=== PATIENT | female | born 1940 | race Caucasian/White ===

== ENCOUNTER 2016-10-14 09:47 | Outpatient (CLI) ==
[2016-10-14 10:09] LABS: BASOPHILS % (AUTO) 0.4 % (0.0-3.0); EOSINOPHILS # (AUTO) 0.6 K/ul (0.0-0.7); EOSINOPHILS % (AUTO) 5.5 % (0.0-7.0); HEMATOCRIT 31.9 % (37.0-47.0); HEMOGLOBIN 9.7 g/dl (12.0-16.0); IMMATURE GRANULOCYTE % (AUTO) 0.3 % (0.0-5.0); LYMPHOCYTES # (AUTO) 1.2 K/uL (0.60-3.4); MEAN CORPUSCULAR HEMOGLOBIN 28.5 pg (27.0-31.0); MEAN CORPUSCULAR HGB CONC 30.4 (31.8-35.4); MEAN CORPUSCULAR VOLUME 93.8 fl (81.0-99.0); MONOCYTES # (AUTO) 0.8 K/uL (0.4-2.0); NEUTROPHILS # (AUTO) 7.8 K/ul (2.0-6.9); NEUTROPHILS % (AUTO) 74.8; PLATELET COUNT 300 10^3/uL (140-440); WHITE BLOOD COUNT 10.44 K/ul (4.6-10.2)
[2016-10-14 10:30] LABS: ALBUMIN 3.2 g/dL (3.4-5.0); ALBUMIN/GLOBULIN RATIO 0.73; ANION GAP 14.6; BILIRUBIN,TOTAL 0.36 mg/dL (0.00-1.20); BUN/CREATININE RATIO 18.55; CALCIUM 9.6 mg/dL (8.2-10.2); CREATININE 1.94 mg/dL (0.60-1.30); POTASSIUM 5.6 mmol/L (3.5-5.10); TOTAL PROTEIN 7.6 g/dL (5.8-8.1)
[2016-10-14 11:17] VITALS: BMI 44.1
--- NOTE | 2016-10-14 11:17 | US ---
EXAM: Bilateral lower extremity venous Doppler History: Bilateral lower extremity pain and edema. Technique: Multiple sonographic images through the bilateral lower extremities were obtained. [place] r duplex Doppler was used to interrogate vascular flow. Findings: The bilateral common femoral, greater saphenous, profunda, superficial femoral, popliteal and left peroneal veins demonstrate spontaneous flow with normal compression and normal augmentatio n. The right peroneal vein was not visualized. The bilateral posterior tibial and anterior tibial veins were not seen. Bilateral lower extremity subcutaneous edema. Impression: 1. No sonographic evidence for deep venous thrombosis within the visualized veins. 2. Bilateral lower extremity subcutaneous edema.
== END 2016-10-14 09:48 | disposition home or self-care (01) ==
LOC: RAD 09:47
PROVIDERS: ATTEND Nurse Practitioner Family
DX: R06.02 Shortness of breath (principal); R05 Cough; M79.604 Pain in right leg; M79.605 Pain in left leg; L03.90 Cellulitis, unspecified
CPT/HCPCS: 36415; 80053; 83880; 85025; 87070

== ENCOUNTER 2016-10-14 11:05 | Emergency (ER) ==
[2016-10-14 11:17] VITALS: BP 145/64; TEMP 98.3; BMI 44.1
[2016-10-14 11:40] LABS: ABG BASE EXCESS -5 (-2.0-2.0); ABG HCO3 20.2 (22.0-26.0); ABG PCO2 33.3 mmHg (35-45); ABG PH 7.391 (7.35-7.45); ABG TCO2 21 (22.0-28.0); ALLEN TEST RB
--- NOTE | 2016-10-14 12:25 | CT ---
EXAM: CT of the chest without contrast History: Short of breath Comparison: Chest CT 08/09/2016 Technique: Multiplanar CT images through the thorax were obtained without the administration of IV contrast Findings: Upper limits of normal heart size. Coronary calcifications. No pericardial effusion. G reat vessels are grossly unremarkable on this noncontrast study. No pathologically enlarged axillar y lymph nodes. Small scattered mediastinal lymph nodes, similar to the prior study. Evaluation for hilar lymph nodes is limited due to the lack of contrast administration but no bulky hilar adenopat hy is seen. Mild bilateral ground-glass changes. No pleural fluid and no pneumothorax. No suspicious lung mass es or lung nodules. In the visualized upper abdomen, evaluation is limited due to motion artifact. Nonspecific subcutan eous edema within the visualized back. No acute osseous abnormalities. 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 Impression: Bilateral ground-glass changes could represent early edema or pneumonia. Borderline en larged heart and coronary artery disease.
--- NOTE | 2016-10-14 12:59 | ED.PDOC ---
General ED Provider: Dr. FAWAD CHANDRA Chief Complaint: Shortness of Air Stated Complaint: shortness of breath Time Seen by Physician: 11:15 Mode of Arrival: Wheelchair Information Source: Patient Exam Limitations: No limitations Primary Care Provider: JESSE WHEELER Nursing and Triage Documentation Reviewed and Agree: Yes Respiratory Complaint Exam - Respiratory Complaint/Exam Onset/Duration: 3 days of shortness breath at clinic abnormal labs noted sent to emergency Symptoms Are: Still present, Resolved Timing: Constant, Intermittent Initial Severity: Mild Current Severity: None Location: Chest Character: Reports: Non-productive cough Aggravating: Reports: None Alleviating: Reports: Spontaneous resolution Associated Signs and Symptoms: Denies: Rapid breathing, Dyspnea, Fever, Chills, Chest pain, Pleuritic chest pain, Wheezing, Hemoptysis, Dizziness, Calf pain, Calf swelling, Edema, URI, Nasal congestion, Hoarseness, Sinus discomfort, Vomiting, Sore throat, Weight loss, Decreased oral intake, Increased thirst, Increased appetite, Increased urination Related History: Reports: Similar episode Related Surgical History: Reports: None Pulmonary Embolism Risk Factors: None Cardiac Risk Factors: Reports: Elevated lipids Pseudomonas Risk Factors: Reports: None Tuberculosis Risk Factors: Reports: None Status Asthmaticus Risk Factors: Reports: None Home Oxygen Use: No Recent Stress Test: No Recent Echo/LV Function: No Current Antibiotic Use: No Current Asthma Medication Use: No Respiratory Distress: None Inadequate Respiratory Effort: No Dysphagia Present: No Stridor Present: No JVD Present: No Accessory Muscle Use: No Retractions: Not Present Diminished Breath Sounds: No Sinus Tenderness: None Grunting Respirations: No Kussmaul Respirations: No Differential Diagnoses: CHF, Pulmonary Edema, COPD Exacerbation, Pneumonia, Bronchitis, URI, Lower Resp. Infection Review of Systems - Review Of Systems Constitutional: Reports: Malaise, Weakness Eyes: Reports: No symptoms Ears, Nose, Mouth, Throat: Reports: No symptoms Respiratory: Reports: Cough Cardiac: Reports: No symptoms GI: Reports: No symptoms : Reports: No symptoms Musculoskeletal: Reports: No symptoms Skin: Reports: Other (rash biltaer lower leg per pt is a chronic issue photos attached ) Neurological: Reports: No symptoms Endocrine: Reports: No symptoms Hematologic/Lymphatic: Reports: No symptoms All Other Systems: Reviewed and Negative Past Medical History - Past Medical History Previously Healthy: No Endocrine: Reports: Dyslipidemia Cardiovascular: Reports: None Respiratory: Reports: None Hematological: Reports: None Gastrointestinal: Reports: GERD Genitourinary: Reports: None Neuro/Psych: Reports: None Musculoskeletal: Reports: Unknown Cancer: Reports: Unknown Last Menstrual Period: n/a - Surgical History General Surgical History: Reports: Unknown - Family History Family History: Reports: Unknown - Social History Smoking Status: Former smoker Hx Substance Use: No Alcohol Screening: None Physical Exam - Physical Exam Appearance: Obese Ill-appearing: Mild Pain Distress: Mild Eyes: TAMELA, EOMI, Conjunctiva clear ENT: Ears normal, Nose normal, Oropharynx normal Respiratory: Airway patent, Breath sounds clear, Breath sounds equal, Respirations nonlabored Cardiovascular: RRR, Pulses normal, No rub, No murmur GI/: Soft, Nontender, No masses, Bowel sounds normal, No Organomegaly Musculoskeletal: Normal strength, ROM intact, No edema, No calf tenderness Skin: Warm, Dry (chronic venous stasis bilateral lower leg ) Neurological: Sensation intact, Motor intact, Reflexes intact, Cranial nerves intact, Alert, Oriented Psychiatric: Affect appropriate, Mood appropriate Interpretation - Assistant Toddler Teacher Rate: Normal Rhythm: Sinus Ectopy: None - EKG Interpretation Rate: Normal Rhythm: Sinus Ectopy: None [place]: Left Physician Notification - Case Discussed Physician Notified: shree Time of Notification: 13:30 Critical Care Note - Critical Care Note Total Time (mins): 0 Course - Course Orders, Labs, Meds: Lab Review 10/14/16 10/14/16 10/14/16 11:17 11:40 11:47 D-Dimer 4.25 O2 Saturation 99.0 ABG pH 7.391 ABG pCO2 33.3 L ABG pO2 151.0 H ABG HCO3 20.2 L ABG Total CO2 21 L ABG Base Excess -5 L Yaya Test Rb FiO2 % 21.0 Lactic Acid 7.7 TSH 1.195 Free T4 1.06 Orders Category Date Time Status ABG DRAW REQUEST Stat CARDIO 10/14/16 11:17 Completed EKG-(ED ONLY) Stat CARDIO 10/14/16 11:18 Completed ABG Stat LAB 10/14/16 11:17 Completed BLOOD CULTURE Stat LAB 10/14/16 11:40 Received D-DIMER Stat LAB 10/14/16 11:47 Completed FREE T4 (FREE THYROXINE) Stat LAB 10/14/16 11:40 Completed LACTIC ACID Stat LAB 10/14/16 11:40 Completed THYROID STIMULATING HORMONE Stat LAB 10/14/16 11:[address] CHEST W/O CONTRAST Stat RADS 10/14/16 11:16 Completed Vital Signs: Temp Pulse Resp BP Pulse Ox 10/14/16 11:06 98.3 F 75 20 145/64 H 96 Departure - Departure Time of Disposition: 13:29 Disposition: TSF SHORT-TRM HOSP Discharge Problem: Acute renal failure (ARF) Qualifiers: Acute renal failure type: unspecified Qualifier Code: (N17.9) Acute kidney failure, unspecified Instructions: Chronic Kidney Disease (ED) Condition: Good Pt referred to PMD for follow-up: Yes Additional Instructions: Please call your Family Physician as soon as possible to schedule a follow-up appointment. Allergies/Adverse Reactions: Allergies pcn Allergy (Severe, Uncoded 10/14/16 11:19) rash , sores in mouth pt notified to get medical alert necklace Home Medications: Ambulatory Orders Meloxicam [Mobic] 15 mg PO DAILY 03/27/14 Oxybutynin Chloride 5 mg PO DAILY 03/27/14 Gabapentin 400 mg PO BID 08/18/16 Tramadol HCl [Ultram] 50 mg PO BID 08/18/16 Hydrocodone/Acetaminophen [[place] 5-325 Tablet] 1 each PO BID PRN #60 tab-cap Disposition Discussed With: Patient, Family
== END 2016-10-14 14:10 | disposition short-term general hospital (02) ==
LOC: ED 11:05
DX: N17.9 Acute kidney failure, unspecified (principal); R06.02 Shortness of breath; E78.5 Hyperlipidemia, unspecified; R53.1 Weakness; Z79.899 Other long term (current) drug therapy; R05 Cough; M79.604 Pain in right leg; M79.605 Pain in left leg; L03.90 Cellulitis, unspecified
CPT/HCPCS: 36415; 80053; 82803; 83605; 83880; 84439; 84443; 85025; 85379; 87040; 87070; 93005; 93010; 99285

== ENCOUNTER 2016-10-14 13:02 | Outpatient (CLI) ==
[2016-10-14 11:17] VITALS: BMI 44.1
== END 2016-10-14 13:03 | disposition home or self-care (01) ==
LOC: LAB 13:02
PROVIDERS: ATTEND Nurse Practitioner Family
DX: M79.604 Pain in right leg (principal); R06.02 Shortness of breath
CPT/HCPCS: 87070

== ENCOUNTER 2016-10-14 14:17 | Outpatient (CLI) ==
[2016-10-14 11:17] VITALS: BMI 44.1
== END 2016-10-14 14:18 | disposition home or self-care (01) ==
LOC: AMBL 14:17
PROVIDERS: ATTEND Internal Medicine
DX: N19 Unspecified kidney failure (principal)

== ENCOUNTER 2016-11-26 19:11 | Outpatient (CLI) | payer OTHER ==
[2016-11-26 19:56] LABS: BILIRUBIN,URINE Negative (NEGATIVE); KETONES,URINE Negative (NEGATIVE); LEUKOCYTE ESTERASE ,URINE Trace (NEGATIVE); NITRITE,URINE Negative (NEGATIVE); PH,URINE 7.5 (5-9); PROTEIN,URINE Negative (NEGATIVE); URINE, BLOOD Negative (NEGATIVE)
[2016-11-26 20:07] LABS: ADD URINE MICROSCOPIC YES; ALBUMIN 3.8 g/dL (3.4-5.0); BUN/CREATININE RATIO 17.85; CALCIUM 10.2 mg/dL (8.2-10.2); CREATININE 0.84 mg/dL (0.60-1.30); PHOSPHORUS 2.6 mg/dL (2.8-4.1); URIC ACID 5.8 mg/dL (2.4-6.0)
[2016-11-26 20:10] LABS: HEMATOCRIT 39.5 % (37.0-47.0); HEMOGLOBIN 12.3 g/dl (12.0-16.0); MEAN CORPUSCULAR HEMOGLOBIN 28.5 pg (27.0-31.0); MEAN CORPUSCULAR HGB CONC 31.1 (31.8-35.4); MEAN CORPUSCULAR VOLUME 91.6 fl (81.0-99.0); RED BLOOD COUNT 4.31 10^6/ul (4.20-5.40); WHITE BLOOD COUNT 7.54 K/ul (4.6-10.2)
[2016-11-28 06:44] LABS: URINE CREATINE 49.8 mg/dL (Not Estab.)
[2016-11-29 15:16] LABS: A/G RATIO 1.1 (0.7-1.7); ALPHA-1 GLOBULIN 0.3 g/dL (0.0-0.4); ALPHA-2 GLOBULIN 0.8 g/dL (0.4-1.0); BETA GLOBULIN 1.3 g/dL (0.7-1.3); TOTAL GLOBULINS 3.4 g/dL (2.2-3.9)
[2016-12-01 07:21] LABS: URINE PROTEIN/CREATININE RATIO 249 mg/g creat (0-200)
== END 2016-11-26 19:12 | disposition home or self-care (01) ==
LOC: NONPT 19:11
PROVIDERS: ATTEND Specialist
DX: E87.5 Hyperkalemia (principal); R79.89 Other specified abnormal findings of blood chemistry
CPT/HCPCS: 80069; 81001; 82570; 83970; 84156; 84165; 84550; 85027

== ENCOUNTER 2017-02-28 12:02 | Outpatient (CLI) ==
[2017-02-28 13:10] LABS: BASOPHILS # (AUTO) 0.1 K/uL (0-0.2); BASOPHILS % (AUTO) 0.6 % (0.0-3.0); EOSINOPHILS # (AUTO) 0.4 K/ul (0.0-0.7); EOSINOPHILS % (AUTO) 4.5 % (0.0-7.0); HEMATOCRIT 37.7 % (37.0-47.0); HEMOGLOBIN 12.2 g/dl (12.0-16.0); IMMATURE GRANULOCYTE % (AUTO) 0.4 % (0.0-5.0); LYMPHOCYTES # (AUTO) 1.9 K/uL (0.60-3.4); LYMPHOCYTES % (AUTO) 24.1 (10.0-50.0); MEAN CORPUSCULAR HEMOGLOBIN 28.2 pg (27.0-31.0); MEAN CORPUSCULAR HGB CONC 32.4 (31.8-35.4); MEAN CORPUSCULAR VOLUME 87.1 fl (81.0-99.0); MONOCYTES # (AUTO) 0.7 K/uL (0.4-2.0); MONOCYTES % (AUTO) 8.9 (0-10); NEUTROPHILS # (AUTO) 4.9 K/ul (2.0-6.9); NEUTROPHILS % (AUTO) 61.5; PLATELET COUNT 306 10^3/uL (140-440); RED BLOOD COUNT 4.33 10^6/ul (4.20-5.40); WHITE BLOOD COUNT 8.01 K/ul (4.6-10.2)
[2017-02-28 13:54] LABS: ALBUMIN 3.6 g/dL (3.4-5.0); ALBUMIN/GLOBULIN RATIO 0.95; ANION GAP 14.3; BILIRUBIN,TOTAL 0.37 mg/dL (0.00-1.20); BUN/CREATININE RATIO 24.41; CALCIUM 9.5 mg/dL (8.2-10.2); CREATININE 0.86 mg/dL (0.60-1.30); POTASSIUM 4.3 mmol/L (3.5-5.10); TOTAL PROTEIN 7.4 g/dL (5.8-8.1)
== END 2017-02-28 12:03 | disposition home or self-care (01) ==
LOC: LAB 12:02
PROVIDERS: ATTEND Nurse Practitioner Family
DX: I35.0 Nonrheumatic aortic (valve) stenosis (principal); E78.5 Hyperlipidemia, unspecified; R60.9 Edema, unspecified
CPT/HCPCS: 36415; 80053; 80061; 84443; 85025

== ENCOUNTER 2017-05-06 15:19 | Outpatient (CLI) ==
[2017-05-06 16:27] LABS: BASOPHILS # (AUTO) 0.1 K/uL (0-0.2); BASOPHILS % (AUTO) 0.7 % (0.0-3.0); EOSINOPHILS # (AUTO) 0.1 K/ul (0.0-0.7); EOSINOPHILS % (AUTO) 1.3 % (0.0-7.0); HEMOGLOBIN 12.3 g/dl (12.0-16.0); IMMATURE GRANULOCYTE % (AUTO) 0.3 % (0.0-5.0); LYMPHOCYTES # (AUTO) 1.9 K/uL (0.60-3.4); LYMPHOCYTES % (AUTO) 21.8 (10.0-50.0); MEAN CORPUSCULAR HEMOGLOBIN 29.8 pg (27.0-31.0); MEAN CORPUSCULAR HGB CONC 33.2 (31.8-35.4); MEAN CORPUSCULAR VOLUME 89.6 fl (81.0-99.0); MONOCYTES # (AUTO) 0.7 K/uL (0.4-2.0); MONOCYTES % (AUTO) 7.5 (0-10); NEUTROPHILS % (AUTO) 68.4; PLATELET COUNT 308 10^3/uL (140-440); RED BLOOD COUNT 4.13 10^6/ul (4.20-5.40); WHITE BLOOD COUNT 8.78 K/ul (4.6-10.2)
[2017-05-06 16:46] LABS: ALBUMIN 3.8 g/dL (3.4-5.0); BILIRUBIN,TOTAL 0.25 mg/dL (0.00-1.20); BUN/CREATININE RATIO 31.03; CALCIUM 9.9 mg/dL (8.2-10.2); CREATININE 0.87 mg/dL (0.60-1.30); PHOSPHORUS 3.7 mg/dL (2.8-4.1); TOTAL PROTEIN 7.6 g/dL (5.8-8.1); URIC ACID 5.6 mg/dL (2.4-6.0)
== END 2017-05-06 15:20 | disposition home or self-care (01) ==
LOC: LAB 15:19
PROVIDERS: ATTEND Nurse Practitioner Family
DX: N18.2 Chronic kidney disease, stage 2 (mild) (principal); E78.5 Hyperlipidemia, unspecified; R01.1 Cardiac murmur, unspecified
CPT/HCPCS: 36415; 80053; 82570; 84100; 84156; 84550; 85025

== ENCOUNTER 2017-11-30 10:12 | Outpatient (CLI) | payer OTHER | END 2017-11-30 10:13 | disposition home or self-care (01) | LOC: LAB 10:12 | PROVIDERS: ATTEND Nurse Practitioner Family | DX: R01.1 Cardiac murmur, unspecified (principal); E78.5 Hyperlipidemia, unspecified; E66.01 Morbid (severe) obesity due to excess calories | CPT/HCPCS: 36415; 80053; 80061; 85025 ==

== ENCOUNTER 2018-03-31 10:42 | Outpatient (CLI) | payer OTHER | END 2018-03-31 10:43 | disposition home or self-care (01) | LOC: FCC-LAB 10:42 | PROVIDERS: ATTEND Nurse Practitioner Family | DX: R01.1 Cardiac murmur, unspecified (principal); E78.5 Hyperlipidemia, unspecified; R60.9 Edema, unspecified; R79.9 Abnormal finding of blood chemistry, unspecified; Z79.899 Other long term (current) drug therapy; Z86.19 Personal history of other infectious and parasitic diseases | CPT/HCPCS: 36415; 80053; 80061; 85025 ==

== ENCOUNTER 2018-05-12 09:40 | Outpatient (CLI) | END 2018-05-12 09:41 | disposition home or self-care (01) | LOC: LAB 09:40 | PROVIDERS: ATTEND Specialist | DX: N18.2 Chronic kidney disease, stage 2 (mild) (principal) | CPT/HCPCS: 36415; 80069; 81001; 82570; 84156; 84550; 85027 ==

== ENCOUNTER 2019-03-26 07:56 | Outpatient (CLI) | END 2019-03-26 07:57 | disposition home or self-care (01) | LOC: RHC-LAB 07:56 | PROVIDERS: ATTEND Nurse Practitioner Family | DX: E78.5 Hyperlipidemia, unspecified (principal); E66.01 Morbid (severe) obesity due to excess calories; R01.1 Cardiac murmur, unspecified | CPT/HCPCS: 36415; 80053; 80061; 84443; 85025 ==

== ENCOUNTER 2023-03-28 14:41 | Observation (INO) ==
[2023-03-28] MEDS ORDERED: SODIUM CHLORIDE 1,000 ML IV STA (15:15)
--- NOTE | 2023-03-28 15:22 | ED.PDOC ---
General ED Provider: Dr. CRISTEL ACEVEDO MD Chief Complaint: Weakness Stated Complaint: generalized weakness Time Seen by Provider: 03/28/23 15:00 Mode of Arrival: Ambulance Information Source: Patient and EMT Exam Limitations: No limitations Primary Care Provider: KAROLINA ANTONIO MD Nursing and Triage Documentation Reviewed and Agree: Yes Does patient meet sepsis criteria?: No System Inflammatory Response Syndrome: Not Applicable Sepsis Protocol: For patient's 13 years and over: Temp is 96.8 and below OR 101 and greater Pulse >90 BPM Resp >20/minute Acutely Altered Mental Status Are patient's symptoms suggestive of a new infection, such as: -Pneumonia -Skin, Soft Tissue -Endocarditis -UTI -Bone, Joint Infection -Implantable Device -Acute Abdominal Infection -Wound Infection -Meningitis -Blood Stream Catheter Infection -Unknown Neurological Complaint Exam Weakness Complaint/Exam Onset: Gradual Duration: ~3 weeks Symptoms Are: Worse Timing: Constant Initial Severity: Mild Current Severity: Moderate Character: Reports Lightheaded, Weak and Dizzy Aggravating: Reports Exertion Alleviating: Reports None Associated Signs and Symptoms: Reports Short of air, Unsteady gait, Change in medication and Loss of balance Cardiac Risk Factors: Reports Hypertension and Elevated lipids CVA Risk Factors: Reports Hypertension and Valvular Heart Disease Related Surgical History: Reports Valve Replacement JVD Present: No Carotid Bruit Present: No Glascow Coma Scale (see protocol): 15 Nystagmus Present: No Meningeal Signs Positive: No Focal Weakness: Present None Focal Sensory Loss: Present None Gait: Unable (unable to assess) [id number]: Normal Findings Differential Diagnoses: CAD, [place], Dysrhythmia, BPPV, Hypovolemia, GI Bleed, Labyrinthitis, Meniere's, Medication reaction, Metabolic abnormalities, Vasovagal reaction and Other Review of Systems Review Of Systems Constitutional: Reports Malaise and Weakness Respiratory: Reports Shortness of Breath (on exertion) Cardiac: Reports Lightheadedness Neurological: Reports Weakness All Other Systems: Reviewed and Negative [facility] Medical History 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 (ICD-10) Arthritis M19.90 - Unspecified osteoarthritis, unspecified site (ICD-10) Cat bite of hand S61.459A - Open bite of unspecified hand, initial encounter (ICD-10) Cat bite of hand S61.459A - Open bite of unspecified hand, initial encounter (ICD-10) Hemangioma D18.00 - Hemangioma unspecified site (ICD-10) Overactive bladder N32.81 - Overactive bladder (ICD-10) Peripheral edema R60.9 - Edema, unspecified (ICD-10) Presence of surgical incision Z78.9 - Other specified health status (ICD-10) Puncture wound of hand, right S61.431A - Puncture wound without foreign body of right hand, initial encounter (ICD-10) Seborrheic dermatitis L21.9 - Seborrheic dermatitis, unspecified (ICD-10) Family History Mother Type 1 diabetes mellitus FATHER No problems noted. Social History Smoking and tobacco status: Never smoker Alcohol intake: never Substance use type: does not use Laureen/sabianism: TAOIST Special laueren needs: No Agree to transfusion: Yes Adopted: No Caregiver/support person: No Foster care: No Household members: none Housing: house Marital status: W / Lives independently: Yes Daycare: no daycare Number of children: 4 Number of grandchildren: 7 Highest education level completed: 12th grade, no diploma Financial difficulty paying for basics: not very hard service: No longterm: No Current occupational status: retired Previous occupational history: electronics manufacturing Pets and animals: Yes Leisure activites: games and volunteer work History of recent travel: Yes Do you think of yourself as: straight/heterosexual Current gender identity: female Seatbelt use: always Helmet use: No Drives intoxicated or rides with intoxicated shuttle van driver: No Current diet type/program: low salt Well-balanced diet: daily Caffeine: Yes Eating out: 1-3 times/week Reads food labels: sometimes During the past year weight has: decreased > 10 lbs Water heater temperature set < 120 degrees: Yes Working smoke detector in home: Yes Fire extinguisher in home: Yes Carbon monoxide detector in home: Yes Firearms in home: Yes Firearms unloaded and locked: Yes Physical activity functional status: independent ambulation Surgical History H/O aortic valve replacement Z95.2 - Presence of prosthetic heart valve (ICD-10) History of musculoskeletal system surgery Z98.890 - Other specified postprocedural states (ICD-10) History of orthopedic surgery Z98.890 - Other specified postprocedural states (ICD-10) History of surgery Z98.890 - Other specified postprocedural states (ICD-10) History of surgery on integumentary structure (~2013) Z98.890 - Other specified postprocedural states (ICD-10) Status post appendectomy Z90.49 - Acquired absence of other specified parts of digestive tract (ICD- 10) Female Reproductive History Menstrual Age of Menarche: 13 Hx Hysterectomy: No Hx Tubal Ligation: No Physical Exam Physical Exam Appearance: Reports Well-appearing and No pain distress Ill-appearing: None Pain Distress: None Eyes: Reports TAMELA, EOMI and Conjunctiva clear ENT: Reports Ears normal and Nose normal Neck: Nonsupple (normal age-appropriate external appearance) Respiratory: Reports Airway patent, Breath sounds clear, Breath sounds equal, Breath sounds diminished and Respirations nonlabored Cardiovascular: Reports RRR GI/: Reports Soft, Nontender and Bowel sounds normal Musculoskeletal: Reports Normal strength and ROM intact Skin: Reports Warm, Dry and Normal color Neurological: Reports Sensation intact, Motor intact, Cranial nerves intact, Alert and Oriented Psychiatric: Reports Other Critical Care Note Critical Care Note Total Critical Care Time (mins): 0 Course Course 03/29/23 04:40 03/29/23 04:40 Orders, Labs, Meds: Lab Review 03/28/23 03/28/23 15:34 18:00 WBC 8.88 RBC 2.90 L Hgb 8.5 L Hct 27.6 L MCV 95.2 MCH 29.3 MCHC 30.8 L RDW Coeff of [place]ka 18.6 H Plt Count 288 Immature Gran % (Auto) 0.3 Neut % (Auto) 74.6 Lymph % (Auto) 11.5 [place] % (Auto) 9.8 Eos % (Auto) 3.6 Baso % (Auto) 0.2 Neut # (Auto) 6.6 Lymph # (Auto) 1.0 [place] # (Auto) 0.9 Eos # (Auto) 0.3 Baso # (Auto) 0.0 Immature Gran # (Auto) 0.0 Sodium 139.9 Potassium 4.81 Chloride 107.2 H Carbon Dioxide 30.1 H Anion Gap 7.41 BUN 46.0 H Creatinine 1.42 H Estimated GFR (MDRD) 35.00 BUN/Creatinine Ratio 32.39 Glucose 113.8 H Calcium 8.93 Magnesium 2.24 Total Bilirubin 0.55 AST 30.3 ALT 17.0 Alkaline Phosphatase 109.9 Total Creatine Kinase 47.5 Troponin I < 0.012 Total Protein 6.62 Albumin 3.58 Globulin 3.04 Albumin/Globulin Ratio 1.17 TSH 3.620 Urine Color Yellow Urine Clarity Clear Urine pH 7.0 Ur Specific [place] 1.015 Urine Protein Negative Urine Glucose (UA) Negative Urine Ketones Negative Urine Blood 1+ H Urine Nitrite Negative Urine Bilirubin Negative Urine Urobilinogen 0.2 Ur Leukocyte Esterase 2+ H Urine Microscopic RBC 10-20 Urine Microscopic WBC 10-20 Ur Squamous Epith Cells 2-5 Urine Bacteria 3+ Orders Category Date Time Status EKG-(ED ONLY) Stat CARDIO 03/28/23 15:19 Completed Saline Lock [ED IV/MEDIPORT/POWERPORT] .ONCE EMERGENCY 03/28/23 15:16 Active CBC W/ AUTO DIFF Stat LAB 03/28/23 15:34 Completed CK [CREATINE KINASE] Stat LAB 03/28/23 15:34 Completed CMP [COMPREHENSIVE METABOLIC PANEL] Stat LAB 03/28/23 15:34 Completed MAGNESIUM Stat LAB 03/28/23 15:34 Completed TROPONIN I Stat LAB 03/28/23 15:34 Completed TSH [THYROID STIMULATING HORMONE] Stat LAB 03/28/23 15:34 Completed UA [URINALYSIS C & S IF INDICATED] Stat LAB 03/28/23 18:00 Completed VITAMIN D2,D3 FRACTIONATED Stat LAB 03/28/23 15:34 Received 0.9 % Sodium Chloride [Saline Flush] Meds 03/28/23 15:15 Active 1 syr IVF PRN PRN Sodium Chloride 0.9% [Sodium Chloride] 1,000 ml Meds 03/28/23 15:15 Discontinued IV 100 mls/hr Sodium Chloride 0.9% [Sodium Chloride] 500 ml Meds 03/28/23 15:56 Discontinued IV 100 mls/hr CHEST, 1V AP ONLY Stat RADS 03/28/23 15:[address] HEAD W/O CONTRAST Stat RADS 03/28/23 15:22 Completed Medications Generic Name Dose Route Start Last Admin Trade Name Virgen PRN Reason Stop Dose Admin Acetaminophen 650 mg 03/28/23 18:08 03/29/23 08:28 Acetaminophen 325 Mg Tablet PO 650 mg Q4H PRN Administration Mild Pain Amlodipine Besylate 5 mg 03/29/23 09:00 03/29/23 08:31 Amlodipine Besylate 5 Mg Tablet PO Not Given DAILY LEONID Atorvastatin Calcium 40 mg 03/29/23 21:00 Atorvastatin Calcium 20 Mg Tablet PO BEDTIME LEONID Carvedilol 25 mg 03/29/23 08:30 03/29/23 08:30 Carvedilol 12.5 Mg Tablet PO Not Given BIDWM LEONID Ferrous Sulfate 324 mg 03/29/23 09:00 03/29/23 08:28 Ferrous Sulfate 324 Mg Tablet.Dr PO 324 mg BID LEONID Administration Sodium Chloride 1,000 mls @ 100 mls/hr 03/28/23 18:30 03/29/23 05:54 Sodium Chloride IV 100 mls/hr .Q10H LEONID Administration Meclizine HCl 25 mg 03/29/23 07:07 Meclizine Hcl 25 Mg Tablet PO DAILY PRN DIZZINESS Non-Formulary Medication 1 applic 03/29/23 07:07 Clobetasol TP DAILY PRN WOUND Sacubitril/Valsartan 1 each 03/29/23 09:00 03/29/23 08:31 Sacubitril/Valsartan 1 Each Tablet PO Not Given BID LEONID Silver Sulfadiazine 1 applic 03/29/23 07:07 Silver Sulfadiazine 50 Gm Cream TP BID PRN Rash Sodium Chloride 1 syr 03/28/23 15:15 0.9% Sodium Chloride 10 Ml Disp.Syrin IVF PRN PRN To flush IV Discontinued Medications Generic Name Dose Route Start Last Admin Trade Name Virgen PRN Reason Stop Dose Admin Hydrocodone Bitart/Acetaminophen 1 tab 03/29/23 00:35 03/29/23 00:51 Hydrocodone Bit/Acetaminophen 5/325 Mg Tablet PO 03/29/23 00:36 1 tab ONCE ONE Administration Sodium Chloride 1,000 mls @ 100 mls/hr 03/28/23 15:15 03/28/23 15:57 Sodium Chloride IV 03/29/23 01:14 Not Given .Q10H STA Sodium Chloride 500 mls @ 100 mls/hr 03/28/23 15:56 03/28/23 15:57 Sodium Chloride IV 03/28/23 20:55 100 mls/hr .Q5H STA Administration Vital Signs: Temp Pulse Resp BP Pulse Ox 03/28/23 14:42 98.2 F 111 H 16 105/62 97 Patient presents with ~3 week h/o progressively worsening generalized weakness. Labs posted, consistent with anemia (RBC 2.90, H/H 8.5/27.6) and ERIN/dehydration (BUN/Creatinine 46.0/1.42, ratio 32.39, GFR 35). CXR reported "No acute cardiopulmonary disease. Mild cardiomegaly and TAVR". CT Head reported "No acute intracranial process". Patient was given an IVNS bolus followed by infusion. Once labs posted, it was obvious she would need admission. I spoke with the Hospitalist PACKAGING ASSEMBLER, Dell Silver, who accepted the patient for admisison. Discharge Plan Discharge Patient Disposition: ADMITTED INPATIENT Discharge Problem: Generalized weakness, Anemia, Acute renal insufficiency, Acute dehydration Did you review [place] COMM[employer]CIAL CONSTRUCTION ESTIMATOR for ALL controlled substances?: Not Applicable ED Provider: CRISTEL ACEVEDO Condition: Stable Physician Progress Note: []
[2023-03-28 15:43] LABS: BASOPHILS % (AUTO) 0.2 % (0.0-3.0); EOSINOPHILS # (AUTO) 0.3 K/ul (0.0-0.7); EOSINOPHILS % (AUTO) 3.6 % (0.0-7.0); HEMATOCRIT 27.6 % (37.0-47.0); HEMOGLOBIN 8.5 g/dl (12.0-16.0); IMMATURE GRANULOCYTE % (AUTO) 0.3 % (0.0-5.0); LYMPHOCYTES % (AUTO) 11.5 (10.0-50.0); MEAN CORPUSCULAR HEMOGLOBIN 29.3 pg (27.0-31.0); MEAN CORPUSCULAR HGB CONC 30.8 (31.8-35.4); MEAN CORPUSCULAR VOLUME 95.2 fl (81.0-99.0); MONOCYTES # (AUTO) 0.9 K/uL (0.4-2.0); MONOCYTES % (AUTO) 9.8 (0-10); NEUTROPHILS # (AUTO) 6.6 K/ul (2.0-6.9); NEUTROPHILS % (AUTO) 74.6 % (42.2-75.2); PLATELET COUNT 288 10^3/uL (140-440); RDW COEFFICIENT OF VARIATION 18.6 % (11.6-14.8); WHITE BLOOD COUNT 8.88 K/ul (4.6-10.2)
[2023-03-28 15:52] LABS: ALBUMIN 3.58 g/dL (3.5-5.0); ALKALINE PHOSPHATASE 109.9 U/L (53-141); ASPARTATE AMINO TRANSFERASE 30.3 U/L (14-36); BILIRUBIN,TOTAL 0.55 mg/dL (0.2-1.3); CALCIUM 8.93 mg/dL (8.4-10.2); CARBON DIOXIDE 30.1 mmol/L (22-30.0); CHLORIDE 107.2 mmol/L (98-107); CREATINE KINASE 47.5 U/L (30-135); CREATININE 1.42 mg/dL (0.60-1.30); GLUCOSE 113.8 mg/dL (74-106); MAGNESIUM 2.24 mg/dL (1.6-2.3); POTASSIUM 4.81 mmol/L (3.5-5.1); SODIUM 139.9 mmol/L (134.5-145); TOTAL PROTEIN 6.62 g/dL (6.3-8.2)
[2023-03-28] MEDS ORDERED: SODIUM CHLORIDE 500 ML IV STA (15:56)
[2023-03-28 16:05] LABS: TROPONIN I < 0.012 ng/ml (0.0000-0.120)
--- NOTE | 2023-03-28 16:42 | DI ---
EXAM: CHEST ONE-VIEW HISTORY: Weakness COMPARISON: Chest radiograph series from 07/23/2022 FINDINGS: The heart is mildly enlarged. TAVR is unchanged. The pulmonary vasculature is normal. N o consolidating infiltrates are detected. No pneumothoraces or pleural effusions. IMPRESSION: 1. No acute cardiopulmonary disease. 2. Mild cardiomegaly and TAVR. .
--- NOTE | 2023-03-28 17:14 | CT ---
EXAM: CT OF THE HEAD WITHOUT CONTRAST History: Weakness. Comparison: Head CT 07/05/2019 Technique: Multiplanar CT images through the head were obtained without the administration of IV con trast FINDINGS: The visualized paranasal sinuses and mastoid air cells are clear in general. No acute jasmyn varial abnormalities. Intracranially the ventricular and cisternal spaces are normal in size, shape and configuration for a patient of this age. No dominant mass or midline shift. No hydrocephalous. No acute intracranial hemorrhage or abnormal extraaxial fluid collections. Impression: No acute intracranial process All CT scans are performed using dose optimization techniques as appropriate to the performed exam an d include at least one of the following: Automated exposure control, adjustment of the mA and/or kV according t o size, and the use of iterative reconstruction technique.
[2023-03-28] MEDS: SODIUM CHLORIDE 1,000 ML IV SCH (20:35)
[2023-03-28 20:51] VITALS: BMI 36.3
[2023-03-28] MEDS: TYLENOL PO PRN (21:39)
[2023-03-28 22:41] LABS: BILIRUBIN,URINE Negative (NEGATIVE); CLARITY,URINE Clear (CLEAR); COLOR,URINE Yellow (YELLOW); GLUCOSE, URINE (UA) Negative (NEGATIVE); KETONES,URINE Negative (NEGATIVE); LEUKOCYTE ESTERASE ,URINE 2+ (NEGATIVE); NITRITE,URINE Negative (NEGATIVE); PROTEIN,URINE Negative (NEGATIVE); URINE, BLOOD 1+ (NEGATIVE); UROBILINOGEN,URINE 0.2 (0.2)
[2023-03-28 22:49] LABS: BACTERIA,URINE 3+ (NOT PRESENT)
[2023-03-29] MEDS ORDERED: NORCO 5-325 PO ONE (00:35)
[2023-03-29] MEDS: TYLENOL PO PRN ×2 (03:01→08:28)
[2023-03-29 05:07] LABS: BASOPHILS % (AUTO) 0.3 % (0.0-3.0); EOSINOPHILS # (AUTO) 0.4 K/ul (0.0-0.7); EOSINOPHILS % (AUTO) 5.4 % (0.0-7.0); HEMATOCRIT 25.5 % (37.0-47.0); HEMOGLOBIN 7.8 g/dl (12.0-16.0); IMMATURE GRANULOCYTE % (AUTO) 0.3 % (0.0-5.0); LYMPHOCYTES # (AUTO) 1.2 K/uL (0.60-3.4); LYMPHOCYTES % (AUTO) 16.7 (10.0-50.0); MEAN CORPUSCULAR HEMOGLOBIN 29.7 pg (27.0-31.0); MEAN CORPUSCULAR HGB CONC 30.6 (31.8-35.4); MONOCYTES # (AUTO) 0.8 K/uL (0.4-2.0); NEUTROPHILS # (AUTO) 4.8 K/ul (2.0-6.9); NEUTROPHILS % (AUTO) 66.3 % (42.2-75.2); PLATELET COUNT 274 10^3/uL (140-440); RDW COEFFICIENT OF VARIATION 18.6 % (11.6-14.8); RED BLOOD COUNT 2.63 10^6/ul (4.20-5.40); WHITE BLOOD COUNT 7.24 K/ul (4.6-10.2)
[2023-03-29 05:11] LABS: ALANINE AMINOTRANSFERASE 15.2 U/L (0-35); ALBUMIN 2.81 g/dL (3.5-5.0); ALKALINE PHOSPHATASE 83.8 U/L (53-141); ASPARTATE AMINO TRANSFERASE 54.6 U/L (14-36); BILIRUBIN,TOTAL 0.34 mg/dL (0.2-1.3); CALCIUM 8.18 mg/dL (8.4-10.2); CARBON DIOXIDE 28.9 mmol/L (22-30.0); CHLORIDE 110.2 mmol/L (98-107); CREATININE 1.12 mg/dL (0.60-1.30); GLUCOSE 100.5 mg/dL (74-106); POTASSIUM 4.64 mmol/L (3.5-5.1); SODIUM 139.8 mmol/L (134.5-145); TOTAL PROTEIN 5.46 g/dL (6.3-8.2)
[2023-03-29 05:24] LABS: IRON 10.3 ug/dL (37-170)
[2023-03-29] MEDS: SODIUM CHLORIDE 1,000 ML IV SCH ×2 (05:54→16:14)
[2023-03-29] MEDS ORDERED: ANTIVERT PO PRN (07:07)
[2023-03-29] MEDS ORDERED: SILVADENE CREAM TP PRN (07:07)
[2023-03-29] MEDS: FERROUS SULFATE PO SCH ×2 (08:28→20:05)
[2023-03-29] MEDS: COREG PO SCH ×2 (08:30→16:14)
[2023-03-29] MEDS: ENTRESTO 24 MG-26 MG TABLET PO SCH ×2 (08:31→20:05)
[2023-03-29] MEDS: NORVASC PO SCH (08:31)
--- NOTE | 2023-03-29 10:33 | PCM ---
Date of Service Date Seen by Provider: 03/29/23 Time Seen by Provider: 10:05 Admit Day/Time Admission Date: 03/28/23 Reason for Admission Chief Complaint: ANEMIA & ACUTE RENAL INSUFFICENCY Hospital Provider Hospital Provider: SHAHZAD JUAREZ, [facility] Primary Care Physician Primary Care Physician: KAROLINA ANTONIO MD History of Present Illness History of Present Illness: 83 yo female presented to the ER with dizziness and weakness. Patient states that over the last couple weeks she has become generally weak. Denies any other complaints. She was found to be in TRIP and anemic in the ER. Denies any bleeding that she is aware. No epistaxis, bloody stools or vomit, or bloody urine. Denies any fever, chills, N/V/D, SOB, or chest pain. Case Discussed With Case Discussed With: Patient's case was discussed with the ER Physicians, Dr. 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 (ICD-10) Afib I48.91 - Unspecified atrial fibrillation (ICD-10) Anemia D64.9 - Anemia, unspecified (ICD-10) Arthritis M19.90 - Unspecified osteoarthritis, unspecified site (ICD-10) Cat bite of hand S61.459A - Open bite of unspecified hand, initial encounter (ICD-10) Hemangioma D18.00 - Hemangioma unspecified site (ICD-10) Hypertension I10 - Essential (primary) hypertension (ICD-10) Lymphedema I89.0 - Lymphedema, not elsewhere classified (ICD-10) Overactive bladder N32.81 - Overactive bladder (ICD-10) Peripheral edema R60.9 - Edema, unspecified (ICD-10) Presence of surgical incision Z78.9 - Other specified health status (ICD-10) Puncture wound of hand, right S61.431A - Puncture wound without foreign body of right hand, initial encounter (ICD-10) Sciatica associated with disorder of lumbar spine M53.86 - Other specified dorsopathies, lumbar region (ICD-10) Seborrheic dermatitis L21.9 - Seborrheic dermatitis, unspecified (ICD-10) Stasis ulcer I83.009 - Varicose veins of unspecified lower extremity with ulcer of un specified site (ICD-10) L97.909 - Non-pressure chronic ulcer of unspecified part of unspecified lower leg with unspecified severity (ICD-10) Surgical History H/O aortic valve replacement Z95.2 - Presence of prosthetic heart valve (ICD-10) History of musculoskeletal system surgery Z98.890 - Other specified postprocedural states (ICD-10) History of orthopedic surgery Z98.890 - Other specified postprocedural states (ICD-10) History of surgery Z98.890 - Other specified postprocedural states (ICD-10) History of surgery on integumentary structure (~2013) Z98.890 - Other specified postprocedural states (ICD-10) Status post appendectomy Z90.49 - Acquired absence of other specified parts of digestive tract (ICD- 10) Family History Mother Type 1 diabetes mellitus FATHER No problems noted. Social History Smoking and tobacco status: Never smoker Alcohol intake: never Substance use type: does not use Laureen/uatsdin: YARSANI Special laureen needs: No Agree to transfusion: Yes Adopted: No Caregiver/support person: No Foster care: No Household members: none Housing: house Marital status: W / Lives independently: Yes Daycare: no daycare Number of children: 4 Number of grandchildren: 7 Highest education level completed: 12th grade, no diploma Financial difficulty paying for basics: not very hard service: No residential: No Current occupational status: retired Previous occupational history: electronics manufacturing Pets and animals: Yes Leisure activites: games and volunteer work History of recent travel: Yes Do you think of yourself as: straight/heterosexual Current gender identity: female Seatbelt use: always Helmet use: No Drives intoxicated or rides with intoxicated 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 Current diet type/program: low salt Well-balanced diet: daily Caffeine: Yes Eating out: 1-3 times/week Reads food labels: sometimes During the past year weight has: decreased > 10 lbs Water heater temperature set < 120 degrees: Yes Working smoke detector in home: Yes Fire extinguisher in home: Yes Carbon monoxide detector in home: Yes Firearms in home: Yes Firearms unloaded and locked: Yes Physical activity functional status: independent ambulation Allergies Allergies Allergy/AdvReac Type Severity Reaction Status Date / Time Penicillins AdvReac Severe Rash Verified 03/28/23 20:52 pcn Allergy Severe rash , Uncoded 03/28/23 20:52 sores in mouth Current Medications Home Medications albuterol sulfate 2.5 mg/3 mL (0.083 %) solution for nebulization 1 vial inhalation Q4-6H PRN shortness of air #100 vials 09/08/18 [History Confirmed 03/28/23 Last Taken Unknown] meclizine 25 mg tablet 25 mg PO QDAY PRN dizziness #90 tabs 01/22/22 [Rx Confirmed 03/28/23 Last Taken Unknown] silver sulfadiazine 1 % topical cream (Silvadene) 1 applic topical BID PRN Rash 01/22/22 [History Confirmed 03/28/23 Last Taken Unknown] aspirin 81 mg chewable tablet 81 mg PO DAILY #30 tabs 06/18/22 [Rx Confirmed 03/28/23 Last Taken Unknown] ferrous sulfate 325 mg (65 mg iron) tablet 325 mg PO Q OTHER DAY #90 tabs 06/18/22 [Rx Confirmed 03/28/23 Last Taken Unknown] ergocalciferol (vitamin D2) 1,250 mcg (50,000 unit) capsule 1,250 mcg PO QMONTH #12 caps 08/23/22 [Rx Confirmed 03/28/23 Last Taken Unknown] clobetasol 0.05 % topical cream 1 applic topical QDAY PRN stasis ulcer 12/29/22 [History Confirmed 03/28/23 Last Taken Unknown] cyclobenzaprine 10 mg tablet 10 mg PO TID PRN muscle spasm #30 tabs 03/17/23 [Rx Confirmed 03/28/23 Last Taken Unknown] minocycline 100 mg capsule 100 mg PO DAILY 03/17/23 [History Confirmed 03/28/23 Last Taken Unknown] naproxen 500 mg tablet 500 mg PO BID PRN pain #30 tabs 03/17/23 [Rx Confirmed 03/28/23 Last Taken Unknown] amlodipine 5 mg tablet 5 mg PO QDAY #90 tabs 03/21/23 [Rx Confirmed 03/28/23 Last Taken Unknown] bumetanide 1 mg tablet 1 mg PO QDAY #100 tabs 03/21/23 [Rx Confirmed 03/28/23 Last Taken Unknown] rivaroxaban 20 mg tablet (Xarelto) 20 mg PO QDAY #90 tabs 03/21/23 [Rx Confirmed 03/28/23 Last Taken Unknown] sacubitril 24 mg-valsartan 26 mg tablet (Entresto) 1 tab PO BID #180 tabs 03/21/23 [Rx Confirmed 03/28/23 Last Taken Unknown] atorvastatin 40 mg tablet (Lipitor) 40 mg PO QHS 03/25/23 [History Confirmed 03/28/23 Last Taken Unknown] carvedilol 12.5 mg tablet 25 mg PO BID 03/25/23 [History Confirmed 03/28/23 Last Taken Unknown] tizanidine 4 mg tablet 4 mg PO Q8H PRN muscle spasticity 20 days #60 tabs 03/25/23 [Rx Confirmed 03/28/23 Last Taken Unknown] Home Acetaminophen (Acetaminophen 325 Mg Tablet) 650 mg PO Q4H PRN PRN Reason: Mild Pain Last Admin: 03/29/23 08:28 Dose: 650 mg Amlodipine Besylate (Amlodipine Besylate 5 Mg Tablet) 5 mg PO DAILY [facility] Last Admin: 03/29/23 08:31 Dose: Not Given Atorvastatin Calcium (Atorvastatin Calcium 20 Mg Tablet) 40 mg PO BEDTIME [facility] Carvedilol (Carvedilol 12.5 Mg Tablet) 25 mg PO BIDWM [facility] Last Admin: 03/29/23 08:30 Dose: Not Given Dexamethasone Sodium Phosphate (Dexamethasone Sod Phos 10 Mg/Ml Inj) 8 mg IVP ONCE ONE Stop: 03/29/23 10:48 Ferrous Sulfate (Ferrous Sulfate 324 Mg Tablet.Dr) 324 mg PO BID [facility] Last Admin: 03/29/23 08:28 Dose: 324 mg Sodium Chloride (Sodium Chloride) 1,000 mls @ 100 mls/hr IV .Q10H [facility] Last Admin: 03/29/23 05:54 Dose: 100 mls/hr Meclizine HCl (Meclizine Hcl 25 Mg Tablet) 25 mg PO DAILY PRN PRN Reason: DIZZINESS Non-Formulary Medication (Clobetasol) 1 applic TP DAILY PRN PRN Reason: WOUND Sacubitril/Valsartan (Sacubitril/Valsartan 1 Each Tablet) 1 each PO BID LEONID Last Admin: 03/29/23 08:31 Dose: Not Given Silver Sulfadiazine (Silver Sulfadiazine 50 Gm Cream) 1 applic TP BID PRN PRN Reason: Rash Sodium Chloride (0.9% Sodium Chloride 10 Ml Disp.Syrin) 1 syr IVF PRN PRN PRN Reason: To flush IV Discontinued Medications Hydrocodone Bitart/Acetaminophen (Hydrocodone Bit/Acetaminophen 5/325 Mg Tablet) 1 tab PO ONCE ONE Stop: 03/29/23 00:36 Last Admin: 03/29/23 00:51 Dose: 1 tab Sodium Chloride (Sodium Chloride) 1,000 mls @ 100 mls/hr IV .Q10H STA Stop: 03/29/23 01:14 Last Admin: 03/28/23 15:57 Dose: Not Given Sodium Chloride (Sodium Chloride) 500 mls @ 100 mls/hr IV .Q5H STA Stop: 03/28/23 20:55 Last Admin: 03/28/23 15:57 Dose: 100 mls/hr Review of Systems Constitutional: Reports Fatigue and Weakness Head: Reports Normocephalic Eyes: Reports No symptoms Ears: Reports No symptoms Nose: Reports No symptoms Mouth: Reports No symptoms Throat: Reports No symptoms Cardiovascular: Reports No symptoms Respiratory: Reports No symptoms Gastrointestinal: Reports No symptoms Genitourinary: Reports No Symptoms Musculoskeletal: Reports No symptoms Endocrine: Reports No symptoms Hematology: Reports No symptoms Immunology: Reports No symptoms Neurological: Reports Dizziness Psychiatric: Reports No symptoms Physical examination Most Recent Vital Signs: Most Recent Vital Signs Temperature 97.8 F 03/29/23 05:16 Temperature Source Oral 03/29/23 05:16 Temperature Source Infrared 03/28/23 14:42 Pulse Rate 103 H 03/29/23 09:51 Respiratory Rate 20 03/29/23 09:51 Blood Pressure 96/64 03/29/23 05:16 Blood Pressure Mean 74 03/29/23 05:16 Blood Pressure Right Arm 121/70 03/28/23 20:18 Blood Pressure Location Right Arm 03/29/23 05:16 Blood Pressure Position Supine 03/29/23 05:16 O2 Sat by Pulse Oximetry 95 03/29/23 05:16 Oxygen Delivery Method Room Air 03/29/23 09:51 Height 5 ft 03/28/23 20:18 Weight 186 lb 03/28/23 20:18 Telemetry Type Remote Telemetry 03/29/23 07:00 Telemetry Monitoring Continues 03/29/23 07:00 Telemetry Heart Rate 73 03/29/23 07:00 EKG QRS Interval 0.09 03/29/23 07:00 EKG QT Interval 0.43 H 03/29/23 01:00 Telemetry Strip Reading A-Fib 03/29/23 07:00 Appearance: Positive Well-appearing, Well-nourished, No Apparent Distress, Alert and Oriented x3 and Obese Skin: Positive [place], Warm, Good Color and Other (chronic wound covered with unaboot to LLE) HEENT: Positive Normocephalic and PERRLA Neck: Positive Supple and Midline Trachea Chest/Lungs: Positive Symmetrical With Equal Breath Sounds, Clear to Auscultation Bilaterally and Good Air Movement all 4 Lung [place] Heart: Positive RRR and Pulses Normal GI/: Positive Soft, Nontender, Bowel Sounds Normal, No Distention and No Organomegaly Musculoskeletal: Positive Normal Gait and Station Extremities: Positive Intact Peripheral Pulses, Stable Joints Without Laxity and Good ROM in All Joints Neurological: Positive Sensation Intact, Motor intact, Reflexes Intact, Alert, Oriented and Other (generalized weakness) Psychiatric: Positive Oriented x4, Appropriate Mood, Appropriate Affect, Intact Memory, Good Short-Term Recall, Good Long-Term Recall, Normal Judgement and Normal Insight Labs This Visit Labs This Visit: Labs This Visit 03/28/23 03/28/23 03/29/23 15:34 18:00 04:40 WBC 8.88 7.24 RBC 2.90 L 2.63 L Hgb 8.5 L 7.8 L Hct 27.6 L 25.5 L MCV 95.2 97.0 MCH 29.3 29.7 MCHC 30.8 L 30.6 L RDW Coeff of [place]ame[place] 18.6 H 18.6 H Plt Count 288 274 Immature Gran % (Auto) 0.3 0.3 Neut % (Auto) 74.6 66.3 Lymph % (Auto) 11.5 16.7 [place] % (Auto) 9.8 11.0 H Eos % (Auto) 3.6 5.4 Baso % (Auto) 0.2 0.3 Neut # (Auto) 6.6 4.8 Lymph # (Auto) 1.0 1.2 [place] # (Auto) 0.9 0.8 Eos # (Auto) 0.3 0.4 Baso # (Auto) 0.0 0.0 Immature Gran # (Auto) 0.0 0.0 Sodium 139.9 139.8 Potassium 4.81 4.64 Chloride 107.2 H 110.2 H Carbon Dioxide 30.1 H 28.9 Anion Gap 7.41 5.34 BUN 46.0 H 38.0 H Creatinine 1.42 H 1.12 Estimated GFR (MDRD) 35.00 46.00 BUN/Creatinine Ratio 32.39 33.92 Glucose 113.8 H 100.5 Calcium 8.93 8.18 L Magnesium 2.24 Iron 10.3 L TIBC 224 L % Saturation 5 Ferritin 20.00 Total Bilirubin 0.55 0.34 AST 30.3 54.6 H ALT 17.0 15.2 Alkaline Phosphatase 109.9 83.8 D Total Creatine Kinase 47.5 Troponin I < 0.012 Total Protein 6.62 5.46 L Albumin 3.58 2.81 L Globulin 3.04 2.65 Albumin/Globulin Ratio 1.17 1.06 TSH 3.620 Urine Color Yellow Urine Clarity Clear Urine pH 7.0 Ur Specific [place] 1.015 Urine Protein Negative Urine Glucose (UA) Negative Urine Ketones Negative Urine Blood 1+ H Urine Nitrite Negative Urine Bilirubin Negative Urine Urobilinogen 0.2 Ur Leukocyte Esterase 2+ H Urine Microscopic RBC 10-20 Urine Microscopic WBC 10-20 Ur Squamous Epith Cells 2-5 Urine Bacteria 3+ Imaging Imaging: EXAM: CT OF THE HEAD WITHOUT CONTRAST FINDINGS: The visualized paranasal sinuses and mastoid air cells are clear in general. No acute calvarial abnormalities. Intracranially the ventricular and cisternal spaces are normal in size, shape and configuration for a patient of this age. No dominant mass or midline shift. No hydrocephalous. No acute intracranial hemorrhage or abnormal extraaxial fluid collections. Impression: No acute intracranial process Review Statement Review Statement: I have independently reviewed and interpreted the labs/EKGs/imaging that were ordered by the ER provider. I have reviewed all outside records that are available currently in our EMR including imaging/notes/labs from previous visits. Plan Plan: 1. TRIP - improving, continue NS@100mL/hr, avoid nephrotoxins agents, encourage oral hydration, holding bumex at this time 2. Acute on Chronic Anemia - checked iron studies, increased dose of ferrous sulfate from QOD to BID due to significant drop in level, no signs of active bleeding, occult stool ordered 3. Wound to LLE - follows with local wound care, has unaboot dressing, foul odor from area, changing dressing and culturing wound 4. Atrial Fibrillation - chronic, rate controlled, continue home medications 5. Hypertension - chronic, BP soft at this time, held morning doses of home medications 6. Sciatica - chronic, states she takes muscle relaxers occasionally but feels that her pain is worse than normal, will give 1 time dose of steroids for inflammation DVT Prophylaxis: Continue home anticoagulation Time Spent: Greater than 80 minutes spent with patient, 50% of the time spent with this patient was devoted to counseling and coordination of care. [facility] Plannin minutes spent discussing advance care planning. Disposition: Admit to: Med/Surg Observation Discussed Plan of Care with Dr. Adam Le. Medications Medication Orders: Medications Ordered Category Date Time Status 0.9 % Sodium Chloride [Saline Flush] Meds 03/28/23 15:15 Active 1 syr IVF PRN PRN Acetaminophen [Tylenol] Meds 03/28/23 18:08 Active 650 mg PO Q4H PRN Amlodipine Besylate [Norvasc] Meds 03/29/23 09:00 Active 5 mg PO DAILY Atorvastatin Calcium [Lipitor] Meds 03/29/23 21:00 Active 40 mg PO BEDTIME Carvedilol [Coreg] Meds 03/29/23 08:30 Active 25 mg PO BIDWM Ferrous Sulfate Meds 03/29/23 09:00 Active 324 mg PO BID Meclizine HCl [Antivert] Meds 03/29/23 07:07 Active 25 mg PO DAILY PRN Sacubitril/Valsartan [Entresto 24 mg-26 mg Tablet] Meds 03/29/23 09:00 Active 1 each PO BID Silver Sulfadiazine [Silvadene Cream] Meds 03/29/23 07:07 Active 1 applic TP BID PRN Sodium Chloride 0.9% [Sodium Chloride] 1,000 ml Meds 03/28/23 18:30 Active IV 100 mls/hr clobetasol Meds 03/29/23 07:07 Active 1 applic TP DAILY PRN
[2023-03-29] MEDS ORDERED: DECADRON IVP ONE ×2 (10:47→13:30)
[2023-03-29] MEDS ORDERED: LIPITOR PO SCH (21:00)
[2023-03-30] MEDS: SODIUM CHLORIDE 1,000 ML IV SCH ×2 (03:04→09:35)
[2023-03-30 05:26] LABS: HEMATOCRIT 27.5 % (37.0-47.0); HEMOGLOBIN 8.3 g/dl (12.0-16.0); IMMATURE GRANULOCYTE % (AUTO) 0.3 % (0.0-5.0); LYMPHOCYTES # (AUTO) 0.5 K/uL (0.60-3.4); LYMPHOCYTES % (AUTO) 6.9 (10.0-50.0); MEAN CORPUSCULAR HEMOGLOBIN 28.8 pg (27.0-31.0); MEAN CORPUSCULAR HGB CONC 30.2 (31.8-35.4); MEAN CORPUSCULAR VOLUME 95.5 fl (81.0-99.0); MONOCYTES # (AUTO) 0.1 K/uL (0.4-2.0); MONOCYTES % (AUTO) 1.2 (0-10); NEUTROPHILS # (AUTO) 6.9 K/ul (2.0-6.9); NEUTROPHILS % (AUTO) 91.6 % (42.2-75.2); PLATELET COUNT 308 10^3/uL (140-440); RDW COEFFICIENT OF VARIATION 18.4 % (11.6-14.8); RED BLOOD COUNT 2.88 10^6/ul (4.20-5.40); WHITE BLOOD COUNT 7.51 K/ul (4.6-10.2)
[2023-03-30 05:45] LABS: ALANINE AMINOTRANSFERASE 16.7 U/L (0-35); ALBUMIN 3.12 g/dL (3.5-5.0); ALKALINE PHOSPHATASE 93.4 U/L (53-141); ASPARTATE AMINO TRANSFERASE 23.4 U/L (14-36); BILIRUBIN,TOTAL 0.33 mg/dL (0.2-1.3); BLOOD UREA NITROGEN 25.4 mg/dL (7-17); CALCIUM 8.15 mg/dL (8.4-10.2); CARBON DIOXIDE 25.7 mmol/L (22-30.0); CHLORIDE 112.1 mmol/L (98-107); CREATININE 0.81 mg/dL (0.60-1.30); GLUCOSE 141.6 mg/dL (74-106); POTASSIUM 4.61 mmol/L (3.5-5.1); SODIUM 139.2 mmol/L (134.5-145); TOTAL PROTEIN 5.87 g/dL (6.3-8.2)
[2023-03-30] MEDS: ENTRESTO 24 MG-26 MG TABLET PO SCH (09:33)
[2023-03-30] MEDS: COREG PO SCH (09:34)
[2023-03-30] MEDS: NORVASC PO SCH (09:34)
[2023-03-30] MEDS: FERROUS SULFATE PO SCH (09:34)
[2023-03-30 10:32] VITALS: BP 129/88; PULSE 122; RESP 16; TEMP 97.7
--- NOTE | 2023-03-30 11:01 | DCSUM ---
Admission Date Admission Date: 03/29/23 Discharge Date Discharge Date: 03/30/23 Admission Diagnosis Admission Diagnosis: TRIP, Weakness, Anemia Discharge Diagnosis Discharge Diagnosis: TRIP, Anemia Hospital Provider Hospital Provider: SHAHZAD JUAREZ, [facility] Primary Care Physician Primary Care Physician: KAROLINA ANTONIO MD Summary of History and Physical Summary of History and Physical: 83 yo female presented to the ER with dizziness and weakness. Patient states that over the last couple weeks she has become generally weak. Denies any other complaints. She was found to be in TRIP and anemic in the ER. Denies any bleeding that she is aware. No epistaxis, bloody stools or vomit, or bloody urine. Denies any fever, chills, N/V/D, SOB, or chest pain. Hospital Course Subjective: Patient received NS@100mL/hr during course of stay. Renal function improved greatly. In ER, patient was found to be anemic with hemoglobin around 8.5, dropped to 7.8 following hydration. Iron was checked and low. She takes iron tabs every other day. It was increased to BID and hemoglobin increased today to 8.3. Family reports she has a leaking heart valve causing this problem and they are aware of signs to watch for. Patient had two episodes of choking on medications and food. Patient reports she needed to have her esophagus stretched 10 years ago but never had the procedure done. Speech therapy completed bedside swallow eval and provided recommendations and education to the patient. Suggested referral to GI for stretching of the esophagus if problem persists. PT ordered outpatient for generalized weakness and chronic back pain. Appearance: Pleasant, No Apparent Distress, Alert, Well-appearing and Well- nourished HEENT: MMM and Supple CVS: No Rubs, No Gallop and No JVD Abdomen: Soft, Non-Tender and No Distention Respiratory: No Dyspnea Extremities: Other (chronic edema noted) Vital Signs: Most Recent Vital Signs Temperature 97.7 F 03/30/23 10:00 Temperature Source Temporal Artery Scan 03/30/23 10:00 Temperature Source Infrared 03/28/23 14:42 Pulse Rate 122 H 03/30/23 10:00 Respiratory Rate 16 03/30/23 10:00 Blood Pressure 129/88 03/30/23 10:00 Blood Pressure Mean 101 03/30/23 10:00 Blood Pressure Right Arm 121/70 03/28/23 20:18 Blood Pressure Location Right Arm 03/30/23 10:00 Blood Pressure Position Sitting 03/30/23 10:00 O2 Sat by Pulse Oximetry 98 03/30/23 10:00 Oxygen Delivery Method Room Air 03/30/23 10:00 Height 5 ft 03/28/23 20:18 Weight 186 lb 03/28/23 20:18 Telemetry Type Remote Telemetry 03/30/23 07:00 Telemetry Monitoring Continues 03/30/23 07:00 Telemetry Heart Rate 121 H 03/30/23 07:00 EKG QRS Interval 0.12 H 03/30/23 07:00 EKG QT Interval 0.43 H 03/29/23 01:00 Telemetry Strip Reading afib w/ bbb/ pvc 03/30/23 07:00 Lab Results Last 24 Hours: 03/30/23 04:51 WBC 7.51 RBC 2.88 L Hgb 8.3 L Hct 27.5 L MCV 95.5 MCH 28.8 MCHC 30.2 L RDW Coeff of [place]ka 18.4 H Plt Count 308 Immature Gran % (Auto) 0.3 Neut % (Auto) 91.6 H Lymph % (Auto) 6.9 L [place] % (Auto) 1.2 Eos % (Auto) 0.0 Baso % (Auto) 0.0 Neut # (Auto) 6.9 Lymph # (Auto) 0.5 L [place] # (Auto) 0.1 L Eos # (Auto) 0.0 Baso # (Auto) 0.0 Immature Gran # (Auto) 0.0 Sodium 139.2 Potassium 4.61 Chloride 112.1 H Carbon Dioxide 25.7 Anion Gap 6.01 BUN 25.4 H Creatinine 0.81 Estimated GFR (MDRD) 67.00 BUN/Creatinine Ratio 31.35 Glucose 141.6 H Calcium 8.15 L Total Bilirubin 0.33 AST 23.4 D ALT 16.7 Alkaline Phosphatase 93.4 Total Protein 5.87 L Albumin 3.12 L Globulin 2.75 Albumin/Globulin Ratio 1.13 Discharge Instructions Discharge Planning: Discharge Planning > 40 minutes If patient is discharged with left ventricular systolic dysfunction: no Activity as tolerated Diet as instructed by speech therapy PT outpatient Follow-up with Dr. Antonio as scheduled. Increase iron tabs to bid from qod Discharge Medications: Medications at Discharge (Home Meds & RX) albuterol sulfate 2.5 mg/3 mL (0.083 %) solution for nebulization 1 vial inhalation Q4-6H PRN shortness of air #100 vials 09/08/18 meclizine 25 mg tablet 25 mg PO QDAY PRN dizziness #90 tabs 01/22/22 silver sulfadiazine 1 % topical cream (Silvadene) 1 applic topical BID PRN Rash 01/22/22 aspirin 81 mg chewable tablet 81 mg PO DAILY #30 tabs 06/18/22 ferrous sulfate 325 mg (65 mg iron) tablet 325 mg PO Q OTHER DAY #90 tabs 06/18/22 ergocalciferol (vitamin D2) 1,250 mcg (50,000 unit) capsule 1,250 mcg PO QMONTH #12 caps 08/23/22 clobetasol 0.05 % topical cream 1 applic topical QDAY PRN stasis ulcer 12/29/22 cyclobenzaprine 10 mg tablet 10 mg PO TID PRN muscle spasm #30 tabs 03/17/23 minocycline 100 mg capsule 100 mg PO DAILY 03/17/23 naproxen 500 mg tablet 500 mg PO BID PRN pain #30 tabs 03/17/23 amlodipine 5 mg tablet 5 mg PO QDAY #90 tabs 03/21/23 bumetanide 1 mg tablet 1 mg PO QDAY #100 tabs 03/21/23 rivaroxaban 20 mg tablet (Xarelto) 20 mg PO QDAY #90 tabs 03/21/23 sacubitril 24 mg-valsartan 26 mg tablet (Entresto) 1 tab PO BID #180 tabs 03/21/23 atorvastatin 40 mg tablet (Lipitor) 40 mg PO QHS 03/25/23 carvedilol 12.5 mg tablet 25 mg PO BID 03/25/23 tizanidine 4 mg tablet 4 mg PO Q8H PRN muscle spasticity 20 days #60 tabs 03/25/23 Discharge Plan Discharge Discharge Orders: Discharge Patient (ONCE); Ordered 03/30/23 Ordered By: LINH TREVINO Activity Restrictions/Additional Instructions: Activity as tolerated Diet as instructed by speech therapy Physical Therapy outpatient Increase iron tabs to twice a day WE HAVE RESCHEDULED YOUR OUTPATIENT RADIOLOGY IMAGING APPOINTMENT OF YOUR LUMBAR SPINE AND HIP FOR TOMORROW, MARCH 31, AT 1PM. SHOULD YOU HAVE ANY QUESTIONS YOU CAN CONTACT THE HOSPITAL AT [phone], EXT [phone]. YOU HAVE A FOLLOW UP APPOINTMENT WITH PAULETTE MARAVILLA NP, ON March AT 9:45. SHOULD YOU HAVE ANY QUESTIONS OR NEED TO RESCHEDULE, YOU CAN CONTACT THEIR OFFICE AT [phone]. Instructions: Dehydration (GEN) Patient Disposition: HOME WITH FAMILY CARE Prescriptions: Continued albuterol sulfate 2.5 MG/3 ML solution for nebulization 1 vial inhalation Q4-6H PRN (Reason: shortness of air) Qty: 100 aspirin 81 mg tablet,chewable 81 mg PO DAILY Qty: 30 1RF amlodipine 5 mg tablet 5 mg PO QDAY Qty: 90 1RF Xarelto 20 mg tablet 20 mg PO QDAY Qty: 90 1RF Rx Instructions: must administer with evening meal bumetanide 1 mg tablet 1 mg PO QDAY Qty: 100 1RF Rx Instructions: 2mg daily x 5 days if >3# in 72 hours then resume 1 mg daily. Entresto 24-26 mg tablet 1 tab PO BID Qty: 180 1RF minocycline 100 mg capsule 100 mg PO DAILY naproxen 500 mg tablet 500 mg PO BID PRN (Reason: pain) Qty: 30 0RF cyclobenzaprine 10 mg tablet 10 mg PO TID PRN (Reason: muscle spasm) Qty: 30 0RF silver sulfadiazine [Silvadene] 1 % cream 1 applic topical BID PRN (Reason: Rash) Rx Instructions: apply a 1.5 mm thickness meclizine 25 mg tablet 25 mg PO QDAY PRN (Reason: dizziness) Qty: 90 0RF atorvastatin [Lipitor] 40 mg tablet 40 mg PO QHS carvedilol 12.5 mg tablet 25 mg PO BID tizanidine 4 mg tablet 4 mg PO Q8H PRN (Reason: muscle spasticity) 20 Days Qty: 60 0RF ergocalciferol (vitamin D2) 1,250 mcg (50,000 unit) capsule 1,250 mcg PO QMONTH Qty: 12 0RF clobetasol 0.05 % cream 1 applic topical QDAY PRN (Reason: stasis ulcer) Changed ferrous sulfate 325 mg (65 mg iron) tablet 325 mg PO BID Qty: 90 0RF Did you review [place] CARDIOLOGY MANAGER for ALL controlled substances?: No Discussed opioids are addictive and Narcan is available by prescription or from pharmacy.: No Condition: Stable
--- NOTE | 2023-03-30 11:56 | RS.BEDDYS ---
Subjective Date of Evaluation: 03/30/23 Date of Onset/Injury/Change in Status: 03/29/23 Diagnosis: Acute renal failure; dehydration Current Level of Function: This is an 83 year old female whom resides independently in her home. She has family that assists her with medication and financial representative tasks. She is independent with meal prep and ADLs. A bedside swallow evaluation will be completed to rule out risks for aspiration/penetration, provide verbal education on safe swallow and aspiration precautions, and recommend safer and least restrictive diet. Current Diet: Regular diet; thin liquids; medications whole with thin liquids. Current Subjective/complaints:: The patient was upright in bed upon BOTTLE AND GLASS INSPECTOR entry. The patient was alert and cooperative with all tasks. She reported the recent episode with difficulty swallowing her medications yesterday this date. She expressed concern for swallowing the medication was in relation to a piece of toast feeling stuck in her mid-esophagus. The patient reported a hx with recom mendations for esophageal dilation approximately 10 years ago. She never completed the elective surgery and has not had difficulty with swallowing until yesterday this date. She then recalled having difficulty swallowing rice and bread textures. The BOTTLE AND GLASS INSPECTOR provided pt with education and training for her to safely return to home environment with potential for minimal swallow difficulty. Medical History Comments:: generalized weakness; a-fib;dyspnea; URI; hear murmur; Hearing impairment; mild cognitive impairment w/ memory loss; anemia. Hx Home Medications: Refer to medications for complete list. Patient's Goals: To consume safer and least restrictive diet General Information General Denture Type: Partial- Upper and Partial- Lower (pt report: need to get a new one on the bottom.) Patient Orientation: Person, Place and Situation Ability to Follow Directions: Good Oral Expression Ability: Mild Impairment (word finding deficits; repeating statements) Voice Voice Quality: Normal Oral-Facial Assessment Face Facial Symmetry: Symmetrical Facial Movement: Controlled Dental/Labial Lip Protrusion: Normal (labial seal on spoon and straw WFL) Lip Retraction: Normal Lingual Protrusion: Normal Retraction: Normal Tip Lateralization: Discoordination (Mildly ) Tip Elevation: Normal Comments: Lingual surface was clean and moist Comments/Additional Info. Comments:: The patient reports that she requires liquids to swallow food. Food Presentation Solids Food Presented: Pureed (Via full tsp) Behaviors/Comments: The patient consumed two full tsp of puree texture. She demonstrated no deficits with A-P transfer; no mastication process was observed. The patient utilized two swallows. No overt s/s of aspiration at the bedside. No wet vocal quality. Food Presented: Chopped (mandarin orange approximately 1/2 tsp.) Behaviors/Comments: Pt consumed four consecutive bites of 1/2 tsp of fruit. The patient demonstrated functional rotary chew pattern. Piecemeal deglutition was observed. No oral residue or lingual residue post swallows. No liquid wash required. The patient had functional swallow initiation and 1-2 multiple swallows. No audible swallow observed. No overt s/s of aspiration. No wet vocal quality post PO trials. Food Presented: Mechanical Soft (1/2 curtis cracker via finger food) Behaviors/Comments: Pt took one bite of 1/2 curtis cracker presented. She demon strated minimally prolonged mastication process with piecemeal deglutition. Initial swallow completed and pt required liquid wash. Two multiple swallow responses observed. No audible swallow. No overt s/s of aspiration. No wet vocal quality. Food Presented: Regular (1/2 saltine cracker) Behaviors/Comments: Pt took small bite of cracker and then took a consecutive bite during mastication process. Mildly prolonged mastication process with piecemeal deglutition. Initial swallow completed and liquid wash was presented. Pt had three multiple swallow responses and one additional liquid wash. Lingual surface had minimal residue. No audible swallow. No overt s/s of aspiration. No wet vocal quality. Liquids Liquid Presented: Thin (open cup and straw) Behaviors/Comments: Pt took sips of thin liquid via straw. Swallow initiation was WFL. Laryngeal elevation was mildly decreased for airway protection. The patient had one additional swallow. Two more large drinks of liquids via straw were consumed with consecutive swallowing pattern. No overt s/s of aspiration. No wet vocal quality. Pt took sip of thin liquids via open cup. She had no overt s/s of aspiration. No wet vocal quality. Recommendations: Dysphagia Evaluation Dietary Recommendations: Regular and Thin Comments:: No rice; restrict bread texture; may toast breads to decrease risk of sticking; increase moisture in foods; add condiments, sauces, gravy, broths to dry textures. Dysphagia Swallow Precautions/Strategies: Sitting Upright (90 deg), Double Swallow, Liquids from Cup, Small Bites and Sips and Alternate Liquids/Solids Comments:: Take a large drink of liquids prior to all PO intake to moisten oral and pharyngeal tissue. Summary Dysphagia Evaluation Summary: The patient presented with mild oropharyngeal phase dysphagia as evidenced by mastication process, decreased bolus formation, multiple swallows, mildly reduced LE with superior and anterior movement, and suspected dry oral/pharyngeal tissue health. The patient has a known hx of narrow UES opening with recommendations for esophageal dilation that patient did not elect to perform the procedure. Due to hx of UES, pt has risks for decreased coordination with phases of swallowing, increasing risk for residue stacking, multiple swallows with residuals, and fatigue with extended meal durations. However, at the bedside the patient did not report pharyngeal residue and utilized liquid washes with small bites of food to increase safe PO intake. At this time, the patient can safely consume regular diet texture and thin liquids with restrictions to regular diet texture and use of safe swallow/aspiration precautions and compensatory swallow strategies. Oral care routine recommended post all PO intake. Further Therapy Indicated?: Yes Comments: Pt may participate in OP speech therapy if continued education warranted due to pt's cognitive impairment with memory loss. Rehab Potential: Good Functional Reporting G Codes: n/a Severity Impairment Rationale: n/a Plan Duration of Treatment: One Time Treatment (Evaluation only) Anticipated Discharge Destination: Home (Planned d/c for this date.) Comments: BOTTLE AND GLASS INSPECTOR provided pt with two printed papers with diet recommendations and restrictions and safe swallow/aspiration precautions with compensatory swallow strategies. BOTTLE AND GLASS INSPECTOR reviewed the strategies with pt at the bedside and with PO trials. The patient verbalized and demonstrated understanding of recommendations. Treatment Code (1) Oropharyngeal dysphagia: Code(s): R13.12 - Dysphagia, oropharyngeal phase
[2023-04-01 11:17] LABS: 25-HYDROXY, VITAMIN D 31 ng/mL (.); 25-HYDROXY, VITAMIN D-2 14 ng/mL (.); 25-HYDROXY, VITAMIN D-3 17 ng/mL (.)
== END 2023-03-30 13:48 | disposition home or self-care (01) ==
LOC: MEDSURG B 14:41 → ED 14:41 → MEDSURG B 20:10
PROVIDERS: ADMIT Hospitalist; ATTEND Nurse Practitioner Family

== ENCOUNTER 2023-08-16 16:38 | Observation (INO) ==
--- NOTE | 2023-08-16 16:44 | ED.PDOC ---
General ED Provider: Dr. YI GROSSMAN MD Chief Complaint: Weakness Stated Complaint: Patient presents for generalized weakness, lower extremity swelling and fatigue. She was seen by her primary care doctor earlier today who noted that she had worsening lower extremity edema. Oxygen saturation was 99% on room air but he was concerned about a CHF exacerbation. He also notes that initially in office that she was hypotensive. This has since normalized. BP normal in ER. Given the hypotension he was hesitant to do outpatient diuretics and sent patient to the ER for further evaluation, laboratory work/diagnostics. Patient reports greatest level of dyspnea when she is walking. She was previously able to complete her ADLs but now struggles to do these at home as she is too short of breath to complete them when ambulating. She does not use oxygen at baseline. There was additional concern for possible renal dysfunction as the Bumex seems to be less effective over the past three days. Time Seen by Provider: 08/16/23 16:42 Mode of Arrival: Walk-In Information Source: Patient Exam Limitations: No limitations Primary Care Provider: KAROLINA ANTONIO MD Nursing and Triage Documentation Reviewed and Agree: Yes Review of Systems Review Of Systems Constitutional: Denies Chills, Fever or Malaise Eyes: Denies Blurred vision or Vision change Ears, Nose, Mouth, Throat: Denies Ear pain or Nose pain Respiratory: Reports Orthopnea and Shortness of Breath; Denies Cough, Stridor or Wheezing Cardiac: Reports Edema; Denies Chest pain or Palpitations GI: Denies Abdomen distended, Abdominal pain, Constipated, Diarrhea, Nausea or Vomiting : Denies Burning, Dysuria or Discharge Musculoskeletal: Denies Back pain or Joint pain Neurological: Denies Anxiety Endocrine: Denies Excessive sweating or Flushing Hematologic/Lymphatic: Denies Blood clots, Easy bleeding or Easy bruising All Other Systems: Reviewed and Negative [facility] Medical History Lymphedema I89.0 - Lymphedema, not elsewhere classified (ICD-10) Anemia D64.9 - Anemia, unspecified (ICD-10) Sciatica associated with disorder of lumbar spine M53.86 - Other specified dorsopathies, lumbar region (ICD-10) Cat bite of hand S61.459A - Open bite of unspecified hand, initial encounter (ICD-10) W55.01XA - Bitten by cat, initial encounter (ICD-10) Afib I48.91 - Unspecified atrial fibrillation (ICD-10) Stasis ulcer Legs wrapped today, declined removal today. I83.009 - Varicose veins of unspecified lower extremity with ulcer of unspecified site (ICD-10) L97.909 - Non-pressure chronic ulcer of unspecified part of unspecified lower leg with unspecified severity (ICD-10) Seborrheic dermatitis Resolved. L21.9 - Seborrheic dermatitis, unspecified (ICD-10) Seborrheic dermatitis L21.9 - Seborrheic dermatitis, unspecified (ICD-10) Hemangioma D18.00 - Hemangioma unspecified site (ICD-10) Presence of surgical incision 18 cm incision with alex. Due to have 50% removed tomorrow. No e/o secondary infection today. 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 Stable/improved as of 01/22/22. will refer to Vascular surgeon per Dr. 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 Social History Smoking and tobacco status: Never smoker Alcohol intake: never Substance use type: does not use Laureen/catholic: CHRISTIANITY Special laureen needs: No Agree to transfusion: Yes Adopted: No Caregiver/support person: No Foster care: No Household members: none Housing: house Marital status: W / Lives independently: Yes Daycare: no daycare Number of children: 4 Number of grandchildren: 7 Highest education level completed: 12th grade, no diploma Financial difficulty paying for basics: not very hard service: No senior living: No Current occupational status: retired Previous occupational history: electronics manufacturing Pets and animals: Yes Leisure activites: games and volunteer work History of recent travel: Yes Do you think of yourself as: straight/heterosexual Current gender identity: female Seatbelt use: always Helmet use: No Drives intoxicated or rides with intoxicated local company hazmat driver: No Current diet type/program: low salt Well-balanced diet: daily Caffeine: Yes Eating out: 1-3 times/week Reads food labels: sometimes During the past year weight has: decreased > 10 lbs Water heater temperature set < 120 degrees: Yes Working smoke detector in home: Yes Fire extinguisher in home: Yes Carbon monoxide detector in home: Yes Firearms in home: Yes Firearms unloaded and locked: Yes Physical activity functional status: independent ambulation Surgical History H/O aortic valve replacement Z95.2 - Presence of prosthetic heart valve (ICD-10) History of musculoskeletal system surgery R KNEE REPLACEMENT Z98.890 - Other specified postprocedural states (ICD-10) History of surgery on integumentary structure (~2013) foot surgery to remove corn Z98.890 - Other specified postprocedural states (ICD-10) History of surgery FATTY TUMOR REMOVAL L BREAST Z98.890 - Other specified postprocedural states (ICD-10) History of orthopedic surgery Z98.890 - Other specified postprocedural states (ICD-10) Status post appendectomy Z90.49 - Acquired absence of other specified parts of digestive tract (ICD- 10) Female Reproductive History Menstrual Age of Menarche: 13 Hx Hysterectomy: No Hx Tubal Ligation: No Physical Exam Physical Exam Appearance: Reports Well-appearing Ill-appearing: None Pain Distress: None Eyes: Reports TAMELA and EOMI ENT: Reports Ears normal, Nose normal and Oropharynx normal Neck: Supple Respiratory: Reports Airway patent, Breath sounds clear, Breath sounds diminished (bilateral) and Respirations nonlabored Cardiovascular: Reports RRR and Pulses normal GI/: Reports Soft and Nontender Musculoskeletal: Reports Normal strength and ROM intact Skin: Reports Warm Neurological: Reports Sensation intact and Motor intact Psychiatric: Reports Affect appropriate Interpretation EKG Interpretation EKG Interpretation By: ED Physician Time of EKG #1: 17:27 Rate: Normal Rhythm: Sinus Ectopy: PVCs ST Segment: Normal Interpretation: Non-specific changes, NO STEMI Critical Care Note Critical Care Note Total Critical Care Time (mins): 0 Course Course 08/16/23 17:57 08/16/23 17:57 Orders, Labs, Meds: Lab Review 08/16/23 17:57 WBC 5.00 RBC 3.55 L Hgb 10.6 L Hct 33.5 L MCV 94.4 MCH 29.9 MCHC 31.6 L RDW Coeff of Tameka 15.7 H Plt Count 174 Immature Gran % (Auto) 0.2 Neut % (Auto) 54.2 Lymph % (Auto) 28.4 Curry % (Auto) 12.8 H Eos % (Auto) 4.0 Baso % (Auto) 0.4 Neut # (Auto) 2.7 Lymph # (Auto) 1.4 Curry # (Auto) 0.6 Eos # (Auto) 0.2 Baso # (Auto) 0.0 Immature Gran # (Auto) 0.0 Sodium 138.9 Potassium 4.84 Chloride 109.2 H Carbon Dioxide 26.5 Anion Gap 8.04 BUN 49.7 H Creatinine 1.35 H Estimated GFR (MDRD) 37.00 BUN/Creatinine Ratio 36.81 Glucose 94.3 Calcium 8.98 Total Bilirubin 0.41 AST 29.0 ALT 17.1 Alkaline Phosphatase 75.1 Total Protein 6.72 Albumin 3.84 Globulin 2.88 Albumin/Globulin Ratio 1.33 Orders Category Date Time Status EKG-(ED ONLY) Stat CARDIO 08/16/23 17:20 Completed CBC W/ AUTO DIFF Stat LAB 08/16/23 17:57 Completed CMP [COMPREHENSIVE METABOLIC PANEL] Stat LAB 08/16/23 17:57 Completed NT-PROBNP Stat LAB 08/16/23 Ordered Vital Signs: Temp Pulse Resp BP Pulse Ox 08/16/23 16:43 97.9 F 98 18 114/66 92 L JOSEPHINE Risk Score JOSEPHINE Risk Score: Risk Score Odds of by 30D 0 0.1 (0.1-0.2) 1 0.3 (0.2-0.3) 2 0.4 (0.3-0.5) 3 0.7 (0.6-0.9) 4 1.2 (1.0-1.5) 5 2.2 (1.9-2.6) 6 3.0 (2.5-3.6) 7 4.8 (3.8-6.1) Discharge Plan Discharge Patient Disposition: ADMITTED INPATIENT Discharge Problem: TRIP (acute kidney injury), Acute exacerbation of CHF (congestive heart failure) Did you review [place] ACTING SECTION CHIEF for ALL controlled substances?: Not Applicable ED Provider: YI GROSSMAN Condition: Stable Physician Progress Note: [MDM CHF Patient with worsening shortness of breath over the past few weeks with constellation of symptoms concerning for possible CHF exacerbation. Patient not overtly hypoxic at rest but noted to develop mild resp distress with ambulation/movement. No longer able to complete ADLs due to this.. No overt evidence of acute ischemia on EKG. Will trial continue diuresis with strict I/O. Given TRIP, will start with small dose of lasix and gentle fluid bolus. Low suspicion for acute PE given exam and history. Given decline in functional status, agree with admission for diuresis and further cardiac evaluation]
[2023-08-16 18:05] LABS: BASOPHILS % (AUTO) 0.4 % (0.0-3.0); EOSINOPHILS # (AUTO) 0.2 K/ul (0.0-0.7); HEMATOCRIT 33.5 % (37.0-47.0); HEMOGLOBIN 10.6 g/dl (12.0-16.0); IMMATURE GRANULOCYTE % (AUTO) 0.2 % (0.0-5.0); LYMPHOCYTES # (AUTO) 1.4 K/uL (0.60-3.4); LYMPHOCYTES % (AUTO) 28.4 (10.0-50.0); MEAN CORPUSCULAR HEMOGLOBIN 29.9 pg (27.0-31.0); MEAN CORPUSCULAR HGB CONC 31.6 (31.8-35.4); MEAN CORPUSCULAR VOLUME 94.4 fl (81.0-99.0); MONOCYTES # (AUTO) 0.6 K/uL (0.4-2.0); MONOCYTES % (AUTO) 12.8 (0-10); NEUTROPHILS # (AUTO) 2.7 K/ul (2.0-6.9); NEUTROPHILS % (AUTO) 54.2 % (42.2-75.2); PLATELET COUNT 174 10^3/uL (140-440); RDW COEFFICIENT OF VARIATION 15.7 % (11.6-14.8); RED BLOOD COUNT 3.55 10^6/ul (4.20-5.40)
[2023-08-16 18:16] LABS: ALANINE AMINOTRANSFERASE 17.1 U/L (0-35); ALBUMIN 3.84 g/dL (3.5-5.0); ALKALINE PHOSPHATASE 75.1 U/L (53-141); BILIRUBIN,TOTAL 0.41 mg/dL (0.2-1.3); BLOOD UREA NITROGEN 49.7 mg/dL (7-17); CALCIUM 8.98 mg/dL (8.4-10.2); CARBON DIOXIDE 26.5 mmol/L (22-30.0); CHLORIDE 109.2 mmol/L (98-107); CREATININE 1.35 mg/dL (0.60-1.30); GLUCOSE 94.3 mg/dL (74-106); POTASSIUM 4.84 mmol/L (3.5-5.1); SODIUM 138.9 mmol/L (134.5-145); TOTAL PROTEIN 6.72 g/dL (6.3-8.2)
[2023-08-16] MEDS ORDERED: SODIUM CHLORIDE 1,000 ML IV STA (18:33)
[2023-08-16] MEDS ORDERED: TYLENOL PO PRN (18:45)
[2023-08-16 18:54] LABS: SARS COV-2 RNA RAPID NAAT NEGATIVE (NEGATIVE)
--- NOTE | 2023-08-16 19:10 | DI ---
EXAM: CHEST FRONTAL AND LATERAL VIEWS HISTORY: Shortness of breath, low oxygen saturation COMPARISON: 03/28/2023 IMPRESSION: No consolidations or acute infiltrates. There is no pneumothorax, vascular congestion or pleural fluid. Cardiomegaly, postop changes of the heart and atherosclerotic disease are stable.
[2023-08-16 21:42] VITALS: BMI 35.3
[2023-08-16] MEDS ORDERED: FLEXERIL PO PRN (22:02)
[2023-08-16] MEDS ORDERED: ANTIVERT PO PRN (22:02)
[2023-08-16] MEDS ORDERED: XARELTO PO SCH (22:30)
[2023-08-16] MEDS: LIPITOR PO SCH (22:30)
[2023-08-16] MEDS: SODIUM CHLORIDE 1,000 ML IV SCH (23:26)
[2023-08-17 05:21] LABS: BASOPHILS % (AUTO) 0.4 % (0.0-3.0); EOSINOPHILS # (AUTO) 0.2 K/ul (0.0-0.7); HEMOGLOBIN 9.6 g/dl (12.0-16.0); LYMPHOCYTES # (AUTO) 1.1 K/uL (0.60-3.4); LYMPHOCYTES % (AUTO) 24.1 (10.0-50.0); MEAN CORPUSCULAR HEMOGLOBIN 29.6 pg (27.0-31.0); MEAN CORPUSCULAR VOLUME 95.7 fl (81.0-99.0); MONOCYTES # (AUTO) 0.5 K/uL (0.4-2.0); MONOCYTES % (AUTO) 10.6 (0-10); NEUTROPHILS # (AUTO) 2.8 K/ul (2.0-6.9); NEUTROPHILS % (AUTO) 60.9 % (42.2-75.2); PLATELET COUNT 157 10^3/uL (140-440); RDW COEFFICIENT OF VARIATION 15.8 % (11.6-14.8); RED BLOOD COUNT 3.24 10^6/ul (4.20-5.40); WHITE BLOOD COUNT 4.53 K/ul (4.6-10.2)
[2023-08-17 05:36] LABS: ALANINE AMINOTRANSFERASE 16.3 U/L (0-35); ALBUMIN 3.26 g/dL (3.5-5.0); ALKALINE PHOSPHATASE 64.9 U/L (53-141); ASPARTATE AMINO TRANSFERASE 29.3 U/L (14-36); BILIRUBIN,TOTAL 0.37 mg/dL (0.2-1.3); BLOOD UREA NITROGEN 42.2 mg/dL (7-17); CALCIUM 8.42 mg/dL (8.4-10.2); CARBON DIOXIDE 25.5 mmol/L (22-30.0); CHLORIDE 112.2 mmol/L (98-107); CREATININE 1.11 mg/dL (0.60-1.30); GLUCOSE 84.5 mg/dL (74-106); POTASSIUM 4.48 mmol/L (3.5-5.1); SODIUM 139.1 mmol/L (134.5-145); TOTAL PROTEIN 5.91 g/dL (6.3-8.2)
[2023-08-17] MEDS: ENTRESTO 24 MG-26 MG TABLET PO SCH ×2 (08:31→20:54)
[2023-08-17] MEDS: ASPIRIN CHEWABLE PO SCH (08:32)
[2023-08-17] MEDS ORDERED: FERROUS SULFATE PO SCH (09:00)
--- NOTE | 2023-08-17 10:04 | PCM ---
Date of Service Date Seen by Provider: 08/17/23 Time Seen by Provider: 08:50 Admit Day/Time Admission Date: 08/16/23 Admission Time: 18:30 Reason for Admission Chief Complaint: CHF TRIP Hospital Provider Hospital Provider: SAVANNA LE MD, [facility] Primary Care Physician Primary Care Physician: KAROLINA ANTONIO MD History of Present Illness History of Present Illness: This 83 year old female was seen at Dr. Antonio office yesterday for shortness of breath and weakness. She also states she had a decrease in output over the last three days. She states she has been having shortness of breath that increases exertion for a couple of weeks and it had gotten worse over the last two days. Dr. Antonio sent her the to ER for hypotension and further evaluation. She states she has been taking her Bumex and it has not been helping much. When she gets short of breath she will push through and finish her task then sit and rest for a bit. She states that this was becoming harder to do. Denies fever, chills, chest pain, nausea, vomiting, or diarrhea. In the ER her Pro-BNP was 5,400, BUN 49.7, GFR 37, and Creatinine 1.35. Denies any other complaints or concerns. She has no question at this time. Admit as observation. Case Discussed With Case Discussed With: Patient's case was discussed with the ER Physicians, Dr. Loving [facility] Medical History Lymphedema I89.0 - Lymphedema, not elsewhere classified (ICD-10) Anemia D64.9 - Anemia, unspecified (ICD-10) Sciatica associated with disorder of lumbar spine M53.86 - Other specified dorsopathies, lumbar region (ICD-10) Cat bite of hand S61.459A - Open bite of unspecified hand, initial encounter (ICD-10) W55.01XA - Bitten by cat, initial encounter (ICD-10) Stasis ulcer Legs wrapped today, declined removal today. I83.009 - Varicose veins of unspecified lower extremity with ulcer of unspecified site (ICD-10) L97.909 - Non-pressure chronic ulcer of unspecified part of unspecified lower leg with unspecified severity (ICD-10) Seborrheic dermatitis Resolved. L21.9 - Seborrheic dermatitis, unspecified (ICD-10) Seborrheic dermatitis L21.9 - Seborrheic dermatitis, unspecified (ICD-10) Hemangioma D18.00 - Hemangioma unspecified site (ICD-10) Presence of surgical incision 18 cm incision with alex. Due to have 50% removed tomorrow. No e/o secondary infection today. 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 Stable/improved as of 01/22/22. will refer to Vascular surgeon per Dr. 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 (ICD-10) Peripheral edema R60.9 - Edema, unspecified (ICD-10) Arthritis M19.90 - Unspecified osteoarthritis, unspecified site (ICD-10) Overactive bladder N32.81 - Overactive bladder (ICD-10) Surgical History H/O aortic valve replacement Z95.2 - Presence of prosthetic heart valve (ICD-10) History of musculoskeletal system surgery R KNEE REPLACEMENT Z98.890 - Other specified postprocedural states (ICD-10) History of surgery on integumentary structure (~2013) foot surgery to remove corn Z98.890 - Other specified postprocedural states (ICD-10) History of surgery FATTY TUMOR REMOVAL L BREAST Z98.890 - Other specified postprocedural states (ICD-10) History of orthopedic surgery Z98.890 - Other specified postprocedural states (ICD-10) Status post appendectomy Z90.49 - Acquired absence of other specified parts of digestive tract (ICD- 10) Family History Mother , diabetes Type 1 diabetes mellitus age 35 FATHER , heart attack after gallbladder surgery No problems noted. Social History Smoking and tobacco status: Former smoker How long ago did patient quit smokin years ago Alcohol intake: never Substance use type: does not use Laureen/gnosticism: YARSANI Special laureen needs: No Agree to transfusion: Yes Adopted: No Caregiver/support person: No Foster care: No Household members: none Housing: house Marital status: W / Lives independently: Yes Daycare: no daycare Number of children: 4 Number of grandchildren: 7 Highest education level completed: 12th grade, no diploma Financial difficulty paying for basics: not very hard service: No CHCF: No Current occupational status: retired Previous occupational history: [employer] Pets and animals: Yes Leisure activites: games and volunteer work History of recent travel: Yes Do you think of yourself as: straight/heterosexual Current gender identity: female Seatbelt use: always Helmet use: No Drives intoxicated or rides with intoxicated special client bus driver: No Current diet type/program: low salt Well-balanced diet: daily Caffeine: Yes Eating out: 1-3 times/week Reads food labels: sometimes During the past year weight has: decreased > 10 lbs Water heater temperature set < 120 degrees: Yes Working smoke detector in home: Yes Fire extinguisher in home: Yes Carbon monoxide detector in home: Yes Firearms in home: Yes Firearms unloaded and locked: Yes Physical activity functional status: independent ambulation Allergies Allergies Allergy/AdvReac Type Severity Reaction Status Date / Time Penicillins AdvReac Severe Rash Verified 08/16/23 16:51 pcn Allergy Severe rash , Uncoded 08/16/23 16:51 sores in mouth Current Medications Home Medications albuterol sulfate 2.5 mg/3 mL (0.083 %) solution for nebulization 1 vial inha lation Q4-6H PRN shortness of air #100 vials 09/08/18 [History Confirmed 08/16/23 Last Taken Unknown] meclizine 25 mg tablet 25 mg PO QDAY PRN dizziness #90 tabs 01/22/22 [Rx Confirmed 08/16/23 Last Taken Unknown] cyclobenzaprine 10 mg tablet 10 mg PO TID PRN muscle spasm #30 tabs 03/17/23 [Rx Confirmed 08/16/23 Last Taken Unknown] sacubitril 24 mg-valsartan 26 mg tablet (Entresto) 1 tab PO BID #180 tabs 03/21/23 [Rx Confirmed 08/16/23 Last Taken Unknown] aspirin 81 mg chewable tablet 81 mg PO DAILY #30 tabs 04/04/23 [Rx Confirmed 08/16/23 Last Taken 08/16/23 08:00] carvedilol 12.5 mg tablet 25 mg (2 x 12.5 mg) PO BID #120 tabs 04/04/23 [Rx Confirmed 08/16/23 Last Taken 08/16/23 08:00] ergocalciferol (vitamin D2) 1,250 mcg (50,000 unit) capsule 1,250 mcg PO QMONTH #12 caps 04/22/23 [Rx Confirmed 08/16/23 Last Taken 08/11/23] bumetanide 1 mg tablet 1 mg PO QDAY #100 tabs 04/26/23 [Rx Confirmed 08/16/23 Last Taken 08/16/23 08:00] ferrous sulfate 325 mg (65 mg iron) tablet 325 mg PO Q OTHER DAY #30 tabs 04/26/23 [Rx Confirmed 08/16/23 Last Taken 08/15/23 20:00] silver sulfadiazine 1 % topical cream (Silvadene) 1 applic topical BID PRN Rash #50 grams 06/27/23 [Rx Confirmed 08/16/23 Last Taken Unknown] atorvastatin 40 mg tablet (Lipitor) 40 mg PO QHS #90 tabs 08/04/23 [Rx Confirmed 08/16/23 Last Taken 08/15/23 20:00] rivaroxaban 20 mg tablet (Xarelto) 20 mg PO QDAY #90 tabs 08/04/23 [Rx Confirmed 08/16/23 Last Taken 08/16/23 08:00] Home Acetaminophen (Acetaminophen 325 Mg Tablet) 650 mg PO Q4H PRN PRN Reason: Mild Pain Aspirin (Aspirin 81 Mg Tab.Chew) 81 mg PO DAILYWM2 LEONID Last Admin: 08/17/23 08:32 Dose: 81 mg Atorvastatin Calcium (Atorvastatin Calcium 20 Mg Tablet) 40 mg PO BEDTIME LEONID Last Admin: 08/16/23 22:30 Dose: 40 mg Cyclobenzaprine HCl (Cyclobenzaprine Hcl 10 Mg Tablet) 10 mg PO TID PRN PRN Reason: Spasms Ergocalciferol (Ergocalciferol (Vitamin D2) 50,000 Unit Capsule) 50,000 unit PO MONTHLY [facility] Ferrous Sulfate (Ferrous Sulfate 324 Mg Tablet.Dr) 324 mg PO Q48H [facility] Last Admin: 08/17/23 08:32 Dose: 324 mg Sodium Chloride (Sodium Chloride) 1,000 mls @ 75 mls/hr IV .[id number] [facility] Last Admin: 08/16/23 23:26 Dose: 75 mls/hr Meclizine HCl (Meclizine Hcl 25 Mg Tablet) 25 mg PO DAILY PRN PRN Reason: DIZZINESS Rivaroxaban (Rivaroxaban 10 Mg Tablet) 20 mg PO QPM [facility] Sacubitril/Valsartan (Sacubitril/Valsartan 1 Each Tablet) 1 each PO BID [facility] Last Admin: 08/17/23 08:31 Dose: 1 each Discontinued Medications Sodium Chloride (Sodium Chloride) 1,000 mls @ 250 mls/hr IV BOLUS STA Stop: 08/16/23 22:32 Last Infusion: 08/16/23 23:25 Dose: Infused Rivaroxaban (Rivaroxaban 10 Mg Tablet) 20 mg PO DAILY [facility] Last Admin: 08/16/23 22:49 Dose: Not Given Review of Systems Constitutional: Reports Weakness Head: Reports Normocephalic Eyes: Reports No symptoms Ears: Reports No symptoms Nose: Reports No symptoms Mouth: Reports No symptoms Throat: Reports No symptoms Cardiovascular: Reports Edema Respiratory: Reports Cough and Shortness of air Gastrointestinal: Reports No symptoms Genitourinary: Reports No Symptoms Musculoskeletal: Reports No symptoms Endocrine: Reports No symptoms Hematology: Reports No symptoms Immunology: Reports No symptoms Neurological: Reports No symptoms Psychiatric: Reports No symptoms Physical examination Most Recent Vital Signs: Most Recent Vital Signs Temperature 97.6 F 08/17/23 05:29 Temperature Source Oral 08/17/23 05:29 Temperature Source Temporal Artery Scan 08/16/23 16:43 Pulse Rate 95 08/17/23 05:29 Respiratory Rate 19 08/17/23 05:29 Blood Pressure 102/59 L 08/17/23 05:29 Blood Pressure Mean 73 08/17/23 05:29 Blood Pressure Left Arm 108/74 08/16/23 21:02 Blood Pressure Location Left Arm 08/17/23 05:29 Blood Pressure Position Supine 08/16/23 21:02 O2 Sat by Pulse Oximetry 96 08/17/23 05:29 Oxygen Delivery Method Room Air 08/17/23 08:52 Height 5 ft 08/16/23 21:02 Weight 181 lb 08/16/23 21:27 Telemetry Type Remote Telemetry 08/17/23 07:00 Telemetry Monitoring Continues 08/17/23 07:00 Telemetry Heart Rate 97 08/17/23 07:00 EKG QRS Interval 0.13 H 08/17/23 07:00 Telemetry Strip Reading atrial flutter w/ PVCs and BBB 08/17/23 07:00 Appearance: Positive Well-appearing, Well-nourished, No Apparent Distress and Alert and Oriented x3 HEENT: Positive Normocephalic Neck: Positive Supple Chest/Lungs: Positive Symmetrical With Equal Breath Sounds and Other (Diminished ) Heart: Positive RRR and Pulses Normal GI/: Positive Soft, Nontender, Bowel Sounds Normal, No Distention and No Organomegaly Musculoskeletal: Positive Normal Gait and Station Extremities: Positive Edema (+2-3 pitting R>L) Neurological: Positive Sensation Intact, Motor intact, Alert and Oriented Psychiatric: Positive Oriented x4, Appropriate Mood and Appropriate Affect Labs This Visit Labs This Visit: Labs This Visit 08/16/23 08/16/23 08/16/23 17:57 18:35 Unknown WBC 5.00 RBC 3.55 L Hgb 10.6 L Hct 33.5 L MCV 94.4 MCH 29.9 MCHC 31.6 L RDW Coeff of Tame[place] 15.7 H Plt Count 174 Immature Gran % (Auto) 0.2 Neut % (Auto) 54.2 Lymph % (Auto) 28.4 [place] % (Auto) 12.8 H Eos % (Auto) 4.0 Baso % (Auto) 0.4 Neut # (Auto) 2.7 Lymph # (Auto) 1.4 [place] # (Auto) 0.6 Eos # (Auto) 0.2 Baso # (Auto) 0.0 Immature Gran # (Auto) 0.0 Sodium 138.9 Potassium 4.84 Chloride 109.2 H Carbon Dioxide 26.5 Anion Gap 8.04 BUN 49.7 H Creatinine 1.35 H Estimated GFR (MDRD) 37.00 BUN/Creatinine Ratio 36.81 Glucose 94.3 Calcium 8.98 Total Bilirubin 0.41 AST 29.0 ALT 17.1 Alkaline Phosphatase 75.1 NT-Pro-B Natriuret Pep 5400 H Total Protein 6.72 Albumin 3.84 Globulin 2.88 Albumin/Globulin Ratio 1.33 SARS CoV-2 RNA Rapid ERICH Negative 08/17/23 05:14 WBC 4.53 L RBC 3.24 L Hgb 9.6 L Hct 31.0 L MCV 95.7 MCH 29.6 MCHC 31.0 L RDW Coeff of [place] 15.8 H Plt Count 157 Immature Gran % (Auto) 0.0 Neut % (Auto) 60.9 Lymph % (Auto) 24.1 [place] % (Auto) 10.6 H Eos % (Auto) 4.0 Baso % (Auto) 0.4 Neut # (Auto) 2.8 Lymph # (Auto) 1.1 [place] # (Auto) 0.5 Eos # (Auto) 0.2 Baso # (Auto) 0.0 Immature Gran # (Auto) 0.0 Sodium 139.1 Potassium 4.48 Chloride 112.2 H Carbon Dioxide 25.5 Anion Gap 5.88 BUN 42.2 H Creatinine 1.11 Estimated GFR (MDRD) 47.00 BUN/Creatinine Ratio 38.01 Glucose 84.5 Calcium 8.42 Total Bilirubin 0.37 AST 29.3 ALT 16.3 Alkaline Phosphatase 64.9 NT-Pro-B Natriuret Pep Total Protein 5.91 L Albumin 3.26 L Globulin 2.65 Albumin/Globulin Ratio 1.23 SARS CoV-2 RNA Rapid ERICH Imaging Imaging: EXAM: CHEST FRONTAL AND LATERAL VIEWS HISTORY: Shortness of breath, low oxygen saturation COMPARISON: 03/28/2023 IMPRESSION: No consolidations or acute infiltrates. There is no pneumothorax, vascular congestion or pleural fluid. Cardiomegaly, postop changes of the heart and atherosclerotic disease are stable. Review Statement Review Statement: I have independently reviewed and interpreted the labs/EKGs/imaging that were ordered by the ER provider. I have reviewed all outside records that are available currently in our EMR including imaging/notes/labs from previous visits. Plan Plan: 1. Acute Kidney Injury - NS 75 mL/hr, CMP, hold Bumex, avoid nephrotoxins and hypotension 2. 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 Atrial Fibrillation - Chronic, stable, continue medication 4. Hyperlipidemia - Chronic, Stable, continue medication 5. COPD - Chronic, non-exacerbation, monitor DVT Prophylaxis: Xarelto, ASA Time Spent: Greater than 80 minutes spent with patient, 50% of the time spent with this patient was devoted to counseling and coordination of care. [facility] Plannin minutes spent discussing advance care planning. Disposition: Admit to: Med/Surg Observation DNR Discussed Plan of Care with Dr. Nicanor Le Medications Medication Orders: Medications Ordered Category Date Time Status Acetaminophen [Tylenol] Meds 08/16/23 18:45 Active 650 mg PO Q4H PRN Aspirin [Aspirin Chewable] Meds 08/17/23 09:00 Active 81 mg PO DAILYWM2 Atorvastatin Calcium [Lipitor] Meds 08/16/23 22:30 Active 40 mg PO BEDTIME Cyclobenzaprine HCl [Flexeril] Meds 08/16/23 22:02 Active 10 mg PO TID PRN Ergocalciferol (Vitamin D2) [Drisdol] Meds 09/10/23 09:00 Active 50,000 unit PO MONTHLY Ferrous Sulfate Meds 08/17/23 09:00 Active 324 mg PO Q48H Meclizine HCl [Antivert] Meds 08/16/23 22:02 Active 25 mg PO DAILY PRN Rivaroxaban [Xarelto] Meds 08/17/23 17:00 Active 20 mg PO QPM Sacubitril/Valsartan [Entresto 24 mg-26 mg Tablet] Meds 08/17/23 09:00 Active 1 each PO BID Sodium Chloride 0.9% [Sodium Chloride] 1,000 ml Meds 08/16/23 20:00 Active IV 75 mls/hr
[2023-08-17] MEDS: SODIUM CHLORIDE 1,000 ML IV SCH (12:38)
[2023-08-17 16:28] LABS: BLOOD UREA NITROGEN 35.8 mg/dL (7-17); CALCIUM 8.72 mg/dL (8.4-10.2); CHLORIDE 111.7 mmol/L (98-107); CREATININE 1.02 mg/dL (0.60-1.30); GLUCOSE 99.2 mg/dL (74-106); POTASSIUM 4.78 mmol/L (3.5-5.1); SODIUM 139.7 mmol/L (134.5-145)
[2023-08-17] MEDS ORDERED: XARELTO PO SCH (17:00)
[2023-08-17] MEDS: LIPITOR PO SCH (20:54)
[2023-08-18] MEDS: SODIUM CHLORIDE 1,000 ML IV SCH (01:58)
[2023-08-18 05:22] VITALS: BP 106/69; PULSE 88; RESP 18; TEMP 97
[2023-08-18 05:36] LABS: BASOPHILS % (AUTO) 0.3 % (0.0-3.0); EOSINOPHILS # (AUTO) 0.3 K/ul (0.0-0.7); EOSINOPHILS % (AUTO) 3.7 % (0.0-7.0); HEMATOCRIT 32.6 % (37.0-47.0); HEMOGLOBIN 9.9 g/dl (12.0-16.0); IMMATURE GRANULOCYTE % (AUTO) 0.1 % (0.0-5.0); LYMPHOCYTES # (AUTO) 1.3 K/uL (0.60-3.4); MEAN CORPUSCULAR HEMOGLOBIN 29.5 pg (27.0-31.0); MEAN CORPUSCULAR HGB CONC 30.4 (31.8-35.4); MONOCYTES # (AUTO) 0.8 K/uL (0.4-2.0); MONOCYTES % (AUTO) 10.7 (0-10); NEUTROPHILS # (AUTO) 5.4 K/ul (2.0-6.9); NEUTROPHILS % (AUTO) 68.2 % (42.2-75.2); PLATELET COUNT 164 10^3/uL (140-440); RDW COEFFICIENT OF VARIATION 15.9 % (11.6-14.8); RED BLOOD COUNT 3.36 10^6/ul (4.20-5.40); WHITE BLOOD COUNT 7.84 K/ul (4.6-10.2)
[2023-08-18 05:47] LABS: ALANINE AMINOTRANSFERASE 16.4 U/L (0-35); ALBUMIN 3.32 g/dL (3.5-5.0); ALKALINE PHOSPHATASE 73.2 U/L (53-141); ASPARTATE AMINO TRANSFERASE 25.7 U/L (14-36); BILIRUBIN,TOTAL 0.49 mg/dL (0.2-1.3); BLOOD UREA NITROGEN 27.5 mg/dL (7-17); CALCIUM 8.44 mg/dL (8.4-10.2); CARBON DIOXIDE 23.3 mmol/L (22-30.0); CHLORIDE 113.9 mmol/L (98-107); CREATININE 0.81 mg/dL (0.60-1.30); GLUCOSE 86.1 mg/dL (74-106); POTASSIUM 4.65 mmol/L (3.5-5.1); SODIUM 138.6 mmol/L (134.5-145); TOTAL PROTEIN 6.04 g/dL (6.3-8.2)
[2023-08-18] MEDS: ASPIRIN CHEWABLE PO SCH (07:18)
[2023-08-18] MEDS ORDERED: BUMEX PO SCH (07:30)
[2023-08-18] MEDS: ENTRESTO 24 MG-26 MG TABLET PO SCH (08:40)
[2023-08-18] MEDS ORDERED: LASIX IVP ONE (09:30)
--- NOTE | 2023-08-18 09:44 | PCM.PROG ---
Date/Time Seen Date Seen by Provider: 08/18/23 Time Seen by Provider: 08:40 Provider Provider: SAVANNA EASTMAN MD, [facility] Chief Complaint Chief Complaint: CHF TRIP Subjective Subjective: Vital Signs Vital Signs: Vital Signs: Last 24 Hours 08/17/23 10:00 08/17/23 11:00 08/17/23 11:42 Temperature Temperature Source Pulse Rate Respiratory Rate Blood Pressure Blood Pressure Mean Blood Pressure Location Blood Pressure Position O2 Sat by Pulse Oximetry Oxygen Delivery Method Room Air Room Air Room Air Oxygen Flow Rate Weight Telemetry Type Telemetry Monitoring Irregular Telemetry Rate (Approximate) Telemetry Heart Rate EKG QRS Interval Telemetry Strip Reading 08/17/23 12:49 08/17/23 13:00 08/17/23 14:00 Temperature Temperature Source Pulse Rate Respiratory Rate Blood Pressure Blood Pressure Mean Blood Pressure Location Blood Pressure Position O2 Sat by Pulse Oximetry Oxygen Delivery Method Room Air Room Air Oxygen Flow Rate Weight Telemetry Type Remote Telemetry Telemetry Monitoring Continues Irregular Telemetry Rate (Approximate) Telemetry Heart Rate 83 EKG QRS Interval 0.14 H Telemetry Strip Reading Atrial Flutter with BBB and PVC's 08/17/23 14:00 08/17/23 15:00 08/17/23 16:00 Temperature 97.6 F Temperature Source Oral Pulse Rate 72 Respiratory Rate 18 Blood Pressure 95/59 L Blood Pressure Mean 71 Blood Pressure Location Right Radial Artery Blood Pressure Position Supine O2 Sat by Pulse Oximetry 95 Oxygen Delivery Method Room Air Room Air Room Air Oxygen Flow Rate Weight Telemetry Type Telemetry Monitoring Irregular Telemetry Rate (Approximate) Telemetry Heart Rate EKG QRS Interval Telemetry Strip Reading 08/17/23 17:00 08/17/23 17:38 08/17/23 19:00 Temperature Temperature Source Pulse Rate Respiratory Rate Blood Pressure Blood Pressure Mean Blood Pressure Location Blood Pressure Position O2 Sat by Pulse Oximetry Oxygen Delivery Method Room Air Room Air Oxygen Flow Rate Weight Telemetry Type Remote Telemetry Telemetry Monitoring Continues Irregular Telemetry Rate (Approximate) Telemetry Heart Rate 100 EKG QRS Interval 0.09 Telemetry Strip Reading A-FIB/FLUTTER 08/17/23 19:00 08/17/23 20:00 08/17/23 21:00 Temperature Temperature Source Pulse Rate Respiratory Rate Blood Pressure Blood Pressure Mean Blood Pressure Location Blood Pressure Position O2 Sat by Pulse Oximetry Oxygen Delivery Method Room Air Room Air Room Air Oxygen Flow Rate Weight Telemetry Type Telemetry Monitoring Irregular Telemetry Rate (Approximate) Telemetry Heart Rate EKG QRS Interval Telemetry Strip Reading 08/17/23 21:22 08/17/23 22:00 08/17/23 23:00 Temperature 97.6 F Temperature Source Temporal Artery Scan Pulse Rate 92 Respiratory Rate 18 Blood Pressure 104/71 Blood Pressure Mean 82 Blood Pressure Location Left Arm Blood Pressure Position Supine O2 Sat by Pulse Oximetry 95 Oxygen Delivery Method Room Air Room Air Room Air Oxygen Flow Rate Weight Telemetry Type Telemetry Monitoring Irregular Telemetry Rate (Approximate) Telemetry Heart Rate EKG QRS Interval Telemetry Strip Reading 08/17/23 23:47 08/18/23 01:00 08/18/23 01:00 Temperature Temperature Source Pulse Rate Respiratory Rate Blood Pressure Blood Pressure Mean Blood Pressure Location Blood Pressure Position O2 Sat by Pulse Oximetry Oxygen Delivery Method Room Air Nasal Cannula Oxygen Flow Rate Weight Telemetry Type Remote Telemetry Telemetry Monitoring Continues Irregular Telemetry Rate (Approximate) 70-80 BPM Telemetry Heart Rate EKG QRS Interval 0.12 H Telemetry Strip Reading A-FIB WITH BBB & PVC'S 08/18/23 02:00 08/18/23 02:15 08/18/23 03:00 Temperature 98.1 F Temperature Source Oral Pulse Rate 76 Respiratory Rate 20 Blood Pressure 115/71 Blood Pressure Mean 85 Blood Pressure Location Right Arm Blood Pressure Position Supine O2 Sat by Pulse Oximetry 97 Oxygen Delivery Method Nasal Cannula Nasal Cannula Nasal Cannula Oxygen Flow Rate 1 Weight Telemetry Type Telemetry Monitoring Irregular Telemetry Rate (Approximate) Telemetry Heart Rate EKG QRS Interval Telemetry Strip Reading 08/18/23 03:52 08/18/23 05:00 08/18/23 05:17 Temperature 97 F L Temperature Source Temporal Artery Scan Pulse Rate 88 Respiratory Rate 18 Blood Pressure 106/69 Blood Pressure Mean 81 Blood Pressure Location Right Arm Blood Pressure Position Supine O2 Sat by Pulse Oximetry 97 Oxygen Delivery Method Nasal Cannula Nasal Cannula Nasal Cannula Oxygen Flow Rate 1 Weight Telemetry Type Telemetry Monitoring Irregular Telemetry Rate (Approximate) Telemetry Heart Rate EKG QRS Interval Telemetry Strip Reading 08/18/23 05:17 08/18/23 05:49 08/18/23 05:58 Temperature Temperature Source Pulse Rate Respiratory Rate Blood Pressure Blood Pressure Mean Blood Pressure Location Blood Pressure Position O2 Sat by Pulse Oximetry Oxygen Delivery Method Nasal Cannula Oxygen Flow Rate Weight 187 lb 4.8 oz 185 lb Telemetry Type Telemetry Monitoring Irregular Telemetry Rate (Approximate) Telemetry Heart Rate EKG QRS Interval Telemetry Strip Reading 08/18/23 07:00 08/18/23 07:00 08/18/23 07:04 Temperature Temperature Source Pulse Rate Respiratory Rate Blood Pressure Blood Pressure Mean Blood Pressure Location Blood Pressure Position O2 Sat by Pulse Oximetry Oxygen Delivery Method Nasal Cannula Nasal Cannula Oxygen Flow Rate Weight Telemetry Type Remote Telemetry Telemetry Monitoring Continues Irregular Telemetry Rate (Approximate) 80-90 BPM Telemetry Heart Rate EKG QRS Interval 0.14 H Telemetry Strip Reading A-Fib with BBB 08/18/23 09:00 08/18/23 09:34 Temperature Temperature Source Pulse Rate Respiratory Rate Blood Pressure Blood Pressure Mean Blood Pressure Location Blood Pressure Position O2 Sat by Pulse Oximetry Oxygen Delivery Method Nasal Cannula Nasal Cannula Oxygen Flow Rate Weight Telemetry Type Telemetry Monitoring Irregular Telemetry Rate (Approximate) Telemetry Heart Rate EKG QRS Interval Telemetry Strip Reading Lab Results Lab Results: Lab Results: Last 24 Hours 08/18/23 08/17/23 05:16 16:02 WBC 7.84 RBC 3.36 L Hgb 9.9 L Hct 32.6 L MCV 97.0 MCH 29.5 MCHC 30.4 L RDW Coeff of [place] 15.9 H Plt Count 164 Immature Gran % (Auto) 0.1 Neut % (Auto) 68.2 Lymph % (Auto) 17.0 [place] % (Auto) 10.7 H Eos % (Auto) 3.7 Baso % (Auto) 0.3 Neut # (Auto) 5.4 Lymph # (Auto) 1.3 [place] # (Auto) 0.8 Eos # (Auto) 0.3 Baso # (Auto) 0.0 Immature Gran # (Auto) 0.0 Sodium 138.6 139.7 Potassium 4.65 4.78 Chloride 113.9 H 111.7 H Carbon Dioxide 23.3 26.0 Anion Gap 6.05 6.78 BUN 27.5 H 35.8 H Creatinine 0.81 1.02 Estimated GFR (MDRD) 67.00 52.00 BUN/Creatinine Ratio 33.95 35.09 Glucose 86.1 99.2 Calcium 8.44 8.72 Total Bilirubin 0.49 AST 25.7 ALT 16.4 Alkaline Phosphatase 73.2 Total Protein 6.04 L Albumin 3.32 L Globulin 2.72 Albumin/Globulin Ratio 1.22 Additional Comments Additional Comments: I have independently reviewed and interpreted the labs/EKGs/imaging ordered during this hospital stay. I have reviewed outside records that are available in our EMR that pertain to medical stay including imaging/notes/labs from previous visits. Active Medications Active Medications: Medications Generic Name Dose Route Start Last Admin Trade Name Freq PRN Reason Stop Dose Admin Acetaminophen 650 mg 08/16/23 18:45 Acetaminophen 325 Mg Tablet PO Q4H PRN Mild Pain Aspirin 81 mg 08/17/23 09:00 08/18/23 07:18 Aspirin 81 Mg Tab.Chew PO 81 mg DAILYWM2 LEONID Administration Atorvastatin Calcium 40 mg 08/16/23 22:30 08/17/23 20:54 Atorvastatin Calcium 20 Mg Tablet PO 40 mg BEDTIME LEONID Administration Bumetanide 1 mg 08/18/23 07:30 08/18/23 07:18 Bumetanide 1 Mg Tablet PO 1 mg QDAC2 LEONID Administration Cyclobenzaprine HCl 10 mg 08/16/23 22:02 Cyclobenzaprine Hcl 10 Mg Tablet PO TID PRN Spasms Ergocalciferol 50,000 unit 09/10/23 09:00 Ergocalciferol (Vitamin D2) 50,000 Unit Capsule PO MONTHLY [facility] Ferrous Sulfate 324 mg 08/17/23 09:00 08/17/23 08:32 Ferrous Sulfate 324 Mg Tablet. PO 324 mg Q48H LEONID Administration Meclizine HCl 25 mg 08/16/23 22:02 Meclizine Hcl 25 Mg Tablet PO DAILY PRN DIZZINESS Rivaroxaban 20 mg 08/17/23 17:00 08/17/23 16:26 Rivaroxaban 10 Mg Tablet PO 20 mg QPM LEONID Administration Sacubitril/Valsartan 1 each 08/17/23 09:00 08/18/23 08:40 Sacubitril/Valsartan 1 Each Tablet PO 1 each BID LEONID Administration Plan Plan: 1. Acute Kidney Injury likely cardiorenal - Improved, stopping fluids today and starting diuresis 2. Acute on Chronic CHFpEF - Daily weight, I&O, fluid restriction 1,800 mL, lasix 20 mg x1, resuming bumex, will re-eval this afternoon 3. Atrial Fibrillation - Chronic, stable, continue medication 4. Hyperlipidemia - Chronic, Stable, continue medication 5. COPD - Chronic, non-exacerbation, monitor DVT Prophylaxis: Xarelto Review Statement Review Statement: I have personally discussed and reviewed the patient's visit/currently labs/imaging/decision making with Dr. Eastman, my supervising attending. Greater that 50 minutes spent with patient, 50% of the time spent with this patient was devoted to counseling and coordination of care.
[2023-08-18] MEDS ORDERED: LASIX IM ONE (10:30)
--- NOTE | 2023-08-18 11:03 | DCSUM ---
Admission Date Admission Date: 08/16/23 Discharge Date Discharge Date: 08/18/23 Admission Diagnosis Admission Diagnosis: 1. Acute Kidney Injury 2. Acute on Chronic CHFpEF 3. Atrial Fibrillation 4. Hyperlipidemia 5. COPD Discharge Diagnosis Discharge Diagnosis: 1. Acute Kidney Injury - Resolved 2. Acute on Chronic CHFpEF - Improving 3. Atrial Fibrillation - Chronic, Stable 4. Hyperlipidemia - Chronic, Stable 5. COPD - Chronic, Stable Hospital Provider Hospital Provider: SAVANNA LE MD, [facility] Primary Care Physician Primary Care Physician: KAROLINA ANTONIO MD Summary of History and Physical Summary of History and Physical: This 83 year old female was seen at Dr. Antonio office yesterday for shortness of breath and weakness. She also states she had a decrease in output over the last three days. She states she has been having shortness of breath that increases exertion for a couple of weeks and it had gotten worse over the last two days. Dr. Antonio sent her the to ER for hypotension and further evaluation. She states she has been taking her Bumex and it has not been helping much. When she gets short of breath she will push through and finish her task then sit and rest for a bit. She states that this was becoming harder to do. Denies fever, chills, chest pain, nausea, vomiting, or diarrhea. In the ER her Pro-BNP was 5,400, BUN 49.7, GFR 37, and Creatinine 1.35. Denies any other complaints or concerns. She has no question at this time. Admit as observation. Hospital Course Subjective: During stay, patient received NS@75mL/hr due to CHF. BUN and creatinine returned to baseline levels. Did not require oxygen during stay. Had some complaints of shortness of breath, but was able to carry on full conversation and talk on the phone frequently without difficulty or decrease in O2 sat. Has been ambulating in the room without assistance. Lower extremities appear at baseline compared to previous admission and per patient. States she has been urinating well. She was given 1 dose of lasix 20 mg IM and had 800 mL output shortly after. Echo completed during stay and unchanged compared to previous per Dr. Analilia Le. All home medications continued and no changes made. Discussed fluid restriction and weight gain guidelines with patient. Appearance: No Apparent Distress, Alert and Well-appearing HEENT: MMM and Supple CVS: No Rubs and No Gallop Abdomen: Soft and Non-Tender Respiratory: No Dyspnea Extremities: Other (chronic lymphedema bilaterally, mild +1 pitting) Vital Signs: Most Recent Vital Signs Temperature 97 F L 08/18/23 05:17 Temperature Source Temporal Artery Scan 08/18/23 05:17 Temperature Source Temporal Artery Scan 08/16/23 16:43 Pulse Rate 88 08/18/23 05:17 Respiratory Rate 18 08/18/23 05:17 Blood Pressure 106/69 08/18/23 05:17 Blood Pressure Mean 81 08/18/23 05:17 Blood Pressure Left Arm 108/74 08/16/23 21:02 Blood Pressure Location Right Arm 08/18/23 05:17 Blood Pressure Position Supine 08/18/23 05:17 O2 Sat by Pulse Oximetry 97 08/18/23 05:17 Oxygen Delivery Method Nasal Cannula 08/18/23 09:34 Oxygen Flow Rate 1 08/18/23 05:17 Height 5 ft 08/16/23 21:02 Weight 185 lb 08/18/23 05:49 Telemetry Type Remote Telemetry 08/18/23 07:00 Telemetry Monitoring Continues 08/18/23 07:00 Irregular Telemetry Rate (Approximate) 80-90 BPM 08/18/23 07:00 Telemetry Heart Rate 100 08/17/23 19:00 EKG QRS Interval 0.14 H 08/18/23 07:00 Telemetry Strip Reading A-Fib with BBB 08/18/23 07:00 Lab Results Last 24 Hours: 08/18/23 08/17/23 05:16 16:02 WBC 7.84 RBC 3.36 L Hgb 9.9 L Hct 32.6 L MCV 97.0 MCH 29.5 MCHC 30.4 L RDW Coeff of Tameka 15.9 H Plt Count 164 Immature Gran % (Auto) 0.1 Neut % (Auto) 68.2 Lymph % (Auto) 17.0 [place] % (Auto) 10.7 H Eos % (Auto) 3.7 Baso % (Auto) 0.3 Neut # (Auto) 5.4 Lymph # (Auto) 1.3 [place] # (Auto) 0.8 Eos # (Auto) 0.3 Baso # (Auto) 0.0 Immature Gran # (Auto) 0.0 Sodium 138.6 139.7 Potassium 4.65 4.78 Chloride 113.9 H 111.7 H Carbon Dioxide 23.3 26.0 Anion Gap 6.05 6.78 BUN 27.5 H 35.8 H Creatinine 0.81 1.02 Estimated GFR (MDRD) 67.00 52.00 BUN/Creatinine Ratio 33.95 35.09 Glucose 86.1 99.2 Calcium 8.44 8.72 Total Bilirubin 0.49 AST 25.7 ALT 16.4 Alkaline Phosphatase 73.2 Total Protein 6.04 L Albumin 3.32 L Globulin 2.72 Albumin/Globulin Ratio 1.22 Discharge Instructions Discharge Planning: Discharge Planning > 40 minutes If patient is discharged with left ventricular systolic dysfunction: NA Discharged with a beta vika? [] If no, why not? [] Discharged with an gume/arb? [] If no, why not? [] 2L fluid restriction Regular diet Activity as tolerated Continue all home medications as prescribed Follow-up with PCP as scheduled Discharge Medications: Medications at Discharge (Home Meds & RX) albuterol sulfate 2.5 mg/3 mL (0.083 %) solution for nebulization 1 vial inhalation Q4-6H PRN shortness of air #100 vials 09/08/18 meclizine 25 mg tablet 25 mg PO QDAY PRN dizziness #90 tabs 01/22/22 cyclobenzaprine 10 mg tablet 10 mg PO TID PRN muscle spasm #30 tabs 03/17/23 sacubitril 24 mg-valsartan 26 mg tablet (Entresto) 1 tab PO BID #180 tabs 03/21/23 aspirin 81 mg chewable tablet 81 mg PO DAILY #30 tabs 04/04/23 carvedilol 12.5 mg tablet 25 mg (2 x 12.5 mg) PO BID #120 tabs 04/04/23 ergocalciferol (vitamin D2) 1,250 mcg (50,000 unit) capsule 1,250 mcg PO QMONTH #12 caps 04/22/23 bumetanide 1 mg tablet 1 mg PO QDAY #100 tabs 04/26/23 ferrous sulfate 325 mg (65 mg iron) tablet 325 mg PO Q OTHER DAY #30 tabs 04/26/23 silver sulfadiazine 1 % topical cream (Silvadene) 1 applic topical BID PRN Rash #50 grams 06/27/23 atorvastatin 40 mg tablet (Lipitor) 40 mg PO QHS #90 tabs 08/04/23 rivaroxaban 20 mg tablet (Xarelto) 20 mg PO QDAY #90 tabs 08/04/23 Discharge Plan Discharge Discharge Orders: Discharge Patient (ONCE); Ordered 08/18/23 Ordered By: LINH TREVINO Activity Restrictions/Additional Instructions: 2L fluid restriction Regular diet Activity as tolerated Continue all home medications as prescribed Follow-up with PCP as scheduled Instructions: Heart Failure (GEN), Acute Kidney Injury (GEN), Fluid Restriction (GEN) Care Plan Goals: Problem: Infection Goal #1: No signs/symptoms of infection Instructions: Monitor for sign/symptoms of infection Monitor temperature Goal #2: White blood cell counts Within Normal Limits Instructions: Obtain labs per physician orders Patient Disposition: HOME SELF-CARE Prescriptions: Continued albuterol sulfate 2.5 MG/3 ML solution for nebulization 1 vial inhalation Q4-6H PRN (Reason: shortness of air) Qty: 100 Entresto 24-26 mg tablet 1 tab PO BID Qty: 180 1RF ergocalciferol (vitamin D2) 1,250 mcg (50,000 unit) capsule 1,250 mcg PO QMONTH Qty: 12 0RF Xarelto 20 mg tablet 20 mg PO QDAY Qty: 90 1RF Rx Instructions: must administer with evening meal atorvastatin [Lipitor] 40 mg tablet 40 mg PO QHS Qty: 90 1RF cyclobenzaprine 10 mg tablet 10 mg PO TID PRN (Reason: muscle spasm) Qty: 30 0RF meclizine 25 mg tablet 25 mg PO QDAY PRN (Reason: dizziness) Qty: 90 0RF aspirin 81 mg tablet,chewable 81 mg PO DAILY Qty: 30 1RF carvedilol 12.5 mg tablet 25 mg PO BID Qty: 120 0RF bumetanide 1 mg tablet 1 mg PO QDAY Qty: 100 1RF Rx Instructions: 2mg daily x 5 days if >3# in 72 hours then resume 1 mg daily. ferrous sulfate 325 mg (65 mg iron) tablet 325 mg PO Q OTHER DAY Qty: 30 0RF Rx Instructions: Change to QOD with vitamin C beverage. silver sulfadiazine [Silvadene] 1 % cream 1 applic topical BID PRN (Reason: Rash) Qty: 50 1RF Patient Comments: uses as needed Rx Instructions: apply a 1.5 mm thickness Did you review [place] MANAGER SK[place] for ALL controlled substances?: No Discussed opioids are addictive and Narcan is available by prescription or from pharmacy.: No Condition: Stable Referrals: WESTON MARAVILLA APRN,[employer] ENGINEER-C [NURSE PRACTITIONER] - 08/26/23 2:45 pm (YOU HAVE A HOSPITAL FOLLOW UP WITH WESTON MARAVILLA APRN ON 08/26/23 AT 2:45PM. )
--- NOTE | 2023-08-18 13:13 | ECHO2D ---
Date of Exam: 08/17/2023 Ordering Physician: DR. ANTONIO Room #: 116 Reason for Echo: SHORTNESS OF BREATH, AORTIC VALVE REPLACEMENT, EDEMA, ATRIAL FIBRILLATION, PALPITATIONS M-Mode Normal Adult Results LV Dimensions Normal Adult Results AoV Opening excursions >1.6 >1.6 LVEDD-base- 3.5-5.8 4.9 Ao root dimensions 2.0-3.7 3.0 LVESD-base- 3.1-4.6 L. Atrium dimensions 1.9-3.8 5.9 Post. Wall thickness 0.8-1.1 1.2 IV septum (thickness) 0.7-1.2 1.1 Post. Wall excursion 0.72-1.3 NORMAL Septal motion NORMAL Systolic motion R. Ventricular cavity 1.5-2.0 NORMAL LVEF 60% 65% Paradoxical septal wall motion NORMAL 2-D : ENLARGED LEFT ATRIAL CAVITY AND RIGHT ATRIAL CAVITY OTHERWISE NORMAL.. PROSTHETIC AORTIC VALVE WORKING WELL. 2-D M Mode Echocardiogram was performed using apical four chamber and left parasternal long and short axis views. Contractility of the left ventricle seems to be normal, so is the cavity size. LEFT ATRIAL CAVITY SIZE IS ENLARGED. Aortic root appears to be normal. There is no pericardial effusion. There is no thrombus noted in the left ventricle or left atrial cavity. COLOR FLOW: MODERATE TRICUSPID REGURGITATION AND MITRAL REGURGITATION. NO AORTIC REGURGITATION SEEN. M-MODE: MV: CALCIFIC MITRAL VALVE ANNULUS AV: PROSTHETIC AORTIC VALVE WORKING WELL TV: NORMAL PV: NORMAL CHAMBER SIZE: ENLARGED LEFT ATRIAL CAVITY AND RIGHT ATRIAL CAVITIES WALL MOTION: NORMAL PERICARDIUM: NORMAL INTERPRETATION: 1. BORDERLINE LEFT VENTRICULAR HYPERTROPHY WITH ENLARGED LEFT ATRIAL CAVITY. 2. NORMAL LEFT VENTRICLE SIZE WITH LEFT VENTRICULAR CONTRACTILITY. 3. NORMAL AORTIC PROSTHETIC VALVE FUNCTIONING. 4. CALCIFIC MITRAL VALVE ANNULUS. 5. MODERATE MITRAL REGURGITATION AND TRICUSPID REGURGITATION. NO AORTIC REGURGITATION SEEN. MTDD
[2023-09-10] MEDS ORDERED: DRISDOL PO SCH (09:00)
== END 2023-08-18 13:22 | disposition home or self-care (01) ==
LOC: ED 16:38 → MEDSURG B 16:38
PROVIDERS: ADMIT Nurse Practitioner Family; ATTEND Hospitalist
DX: E78.5 Hyperlipidemia, unspecified; Z79.899 Other long term (current) drug therapy; Z20.822 Contact with and (suspected) exposure to COVID-19; J44.9 Chronic obstructive pulmonary disease, unspecified; N17.9 Acute kidney failure, unspecified; I50.33 Acute on chronic diastolic (congestive) heart failure; I48.91 Unspecified atrial fibrillation; Z51.81 Encounter for therapeutic drug level monitoring

== ENCOUNTER 2023-12-08 16:54 | Observation (INO) ==
--- NOTE | 2023-12-08 17:41 | ED.PDOC ---
General ED Provider: Dr. FAWAD CONNELL MD Chief Complaint: Respiratory Complaint Stated Complaint: Patient with history of atrial fibrillation renal sufficiency and anemia diagnosed 2 days ago by primary care provider with influenza A. Patient now complains of exertional dyspnea associate with fever chills malaise. Denies chest pain, palpitations, nausea vomiting. Time Seen by Provider: 12/08/23 17:36 Mode of Arrival: Wheelchair Information Source: Patient Exam Limitations: Clinical condition Primary Care Provider: KAROLINA ANTONIO MD Nursing and Triage Documentation Reviewed and Agree: Yes What is Opioid Naive?: *Opioid Naive implies the patient is not already taking opioids or not chronically receiving opioids on a daily basis. *PRN dosing is not "usually" associated with tolerance. *Patients are at higher risk of over-sedation and aspiration. What is Opioid Tolerant?: *Opioid Tolerance implies less than the expected response to an opioid. *Acquired tolerance is defined by the patient taking 60mg of oral morphine daily (or equianalgesic dose of another opioid) for 1 week or more. *Often associated with chronic pain. *May take more than usual dose to achieve desired pain control. Review of Systems Review Of Systems Constitutional: Reports Fever and Malaise Eyes: Reports No symptoms Ears, Nose, Mouth, Throat: Reports No symptoms Respiratory: Reports Cough and Shortness of Breath Cardiac: Reports No symptoms GI: Reports No symptoms : Reports No symptoms Musculoskeletal: Reports No symptoms Skin: Reports No symptoms Neurological: Reports No symptoms Endocrine: Reports No symptoms Hematologic/Lymphatic: Reports No symptoms All Other Systems: Reviewed and Negative [facility] Medical History Afib I48.91 - Unspecified atrial fibrillation (ICD-10) Lymphedema I89.0 - Lymphedema, not elsewhere classified (ICD-10) Anemia D64.9 - Anemia, unspecified (ICD-10) Sciatica associated with disorder of lumbar spine M53.86 - Other specified dorsopathies, lumbar region (ICD-10) Cat bite of hand S61.459A - Open bite of unspecified hand, initial encounter (ICD-10) W55.01XA - Bitten by cat, initial encounter (ICD-10) Stasis ulcer Legs wrapped today, declined removal today. I83.009 - Varicose veins of unspecified lower extremity with ulcer of unspecified site (ICD-10) L97.909 - Non-pressure chronic ulcer of unspecified part of unspecified lower leg with unspecified severity (ICD-10) Seborrheic dermatitis Resolved. L21.9 - Seborrheic dermatitis, unspecified (ICD-10) Seborrheic dermatitis L21.9 - Seborrheic dermatitis, unspecified (ICD-10) Hemangioma D18.00 - Hemangioma unspecified site (ICD-10) Presence of surgical incision 18 cm incision with alex. Due to have 50% removed tomorrow. No e/o secondary infection today. 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 Stable/improved as of 01/22/22. will refer to Vascular surgeon per Dr. 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 Social History Smoking and tobacco status: Former smoker How long ago did patient quit smokin years ago Alcohol intake: never Substance use type: does not use Laureen/tenriism: ORTHODOXY Special laureen needs: No Agree to transfusion: Yes Adopted: No Caregiver/support person: No Foster care: No Household members: none Housing: house Marital status: W / Lives independently: Yes Daycare: no daycare Number of children: 4 Number of grandchildren: 7 Highest education level completed: 12th grade, no diploma Financial difficulty paying for basics: not very hard service: No [facility]: No Current occupational status: retired Previous occupational history: electronics manufacturing Pets and animals: Yes Leisure activites: games and volunteer work History of recent travel: Yes Do you think of yourself as: straight/heterosexual Current gender identity: female Seatbelt use: always Helmet use: No Drives intoxicated or rides with intoxicated cdl company flatbed driver: No Current diet type/program: low salt Well-balanced diet: daily Caffeine: Yes Eating out: 1-3 times/week Reads food labels: sometimes During the past year weight has: decreased > 10 lbs Water heater temperature set < 120 degrees: Yes Working smoke detector in home: Yes Fire extinguisher in home: Yes Carbon monoxide detector in home: Yes Firearms in home: Yes Firearms unloaded and locked: Yes Physical activity functional status: independent ambulation Surgical History H/O aortic valve replacement Z95.2 - Presence of prosthetic heart valve (ICD-10) History of musculoskeletal system surgery R KNEE REPLACEMENT Z98.890 - Other specified postprocedural states (ICD-10) History of surgery on integumentary structure (~2013) foot surgery to remove corn Z98.890 - Other specified postprocedural states (ICD-10) History of surgery FATTY TUMOR REMOVAL L BREAST Z98.890 - Other specified postprocedural states (ICD-10) History of orthopedic surgery Z98.890 - Other specified postprocedural states (ICD-10) Status post appendectomy Z90.49 - Acquired absence of other specified parts of digestive tract (ICD- 10) Female Reproductive History Menstrual Age of Menarche: 13 Hx Hysterectomy: No Hx Tubal Ligation: No Physical Exam Physical Exam Appearance: Reports Ill-appearing Ill-appearing: Mild Pain Distress: None Eyes: Reports TAMELA ENT: Reports Ears normal Neck: Supple Respiratory: Reports Airway patent, Breath sounds diminished and Wheezes (Bibasilar wheezes there is no labored breathing there is no costal traction there is no audible wheezes or stridor) Cardiovascular: Reports RRR, Pulses normal, No rub and No murmur GI/: Reports Soft, Nontender, No masses and Bowel sounds normal Musculoskeletal: Reports Normal strength, ROM intact and No edema Skin: Reports Warm, Dry and Normal color Neurological: Reports Sensation intact, Motor intact, Reflexes intact and Cranial nerves intact Psychiatric: Reports Affect appropriate and Mood appropriate Re-Evaluation Re-Evaluation Time of Re-Evaluation: 19:30 Status: Improved Vital Signs Stable: Yes Pain Level: Breath sounds have improved after the DuoNeb aerosol treatment Physician Notification Case Discussed Physician Notified: discussed with hospitalist Dell Time of Notification: 19:50 Comments: Recommendations after review of the laboratory data over chest x-ray for observation with telemetry Critical Care Note Critical Care Note Total Critical Care Time (mins): 20 Course Course 12/08/23 18:17 12/08/23 18:17 Orders, Labs, Meds: Lab Review 12/08/23 12/08/23 18:17 19:09 WBC 7.65 RBC 3.44 L Hgb 10.3 L Hct 32.9 L MCV 95.6 MCH 29.9 MCHC 31.3 L RDW Coeff of Tameka 13.9 Plt Count 262 Immature Gran % (Auto) 0.4 Neut % (Auto) 72.3 Lymph % (Auto) 15.0 [place] % (Auto) 9.3 Eos % (Auto) 2.9 Baso % (Auto) 0.1 Neut # (Auto) 5.5 Lymph # (Auto) 1.2 [place] # (Auto) 0.7 Eos # (Auto) 0.2 Baso # (Auto) 0.0 Immature Gran # (Auto) 0.0 PT 13.8 H INR 1.35 Sodium 139.7 Potassium 4.81 Chloride 111.4 H Carbon Dioxide 25.0 Anion Gap 8.11 BUN 27.1 H Creatinine 0.80 Estimated GFR (MDRD) 68.00 BUN/Creatinine Ratio 33.87 Glucose 102.2 Calcium 9.17 Magnesium 2.04 Total Bilirubin 0.73 AST 40.3 H ALT 27.4 Alkaline Phosphatase 97.4 Troponin I < 0.012 NT-Pro-B Natriuret Pep 5800 H Total Protein 7.08 Albumin 3.81 Globulin 3.27 Albumin/Globulin Ratio 1.16 SARS CoV-2 RNA Rapid ERICH Negative Orders Category Date Time Status PLACE PATIENT OBSERVATION .TO [facility] (MONITORED BED ADMISSION 12/08/23 19:55 Active ) EKG-(ED ONLY) Stat CARDIO 12/08/23 17:55 Completed NEBULIZER TREATMENT Routine CARDIO 12/08/23 19:59 Ordered NEBULIZER TREATMENT Stat CARDIO 12/08/23 18:36 Completed ACTIVITY .Early Mobilization for VTE Prevention CARE 12/08/23 19:55 Active INTAKE & OUTPUT Q8HR CARE 12/08/23 19:55 Active TELEMETRY MONITORING TELE CARE 12/08/23 19:55 Active VITAL SIGNS Q4HR CARE 12/08/23 19:55 Active WEIGH PATIENT DAILY CARE 12/09/23 06:00 Active FLUID RESTRICTION 1800 ML DIETARY 12/09/23 Breakfast Ordered REGULAR DIET DIETARY 12/09/23 Breakfast Ordered Professor Of Environmental Engineering [ED HEAT AND VENT AIRCRAFT MECHANIC APPLIED] .ONCE EMERGENCY 12/08/23 17:55 Active Saline Lock [ED IV/MEDIPORT/POWERPORT] .ONCE EMERGENCY 12/08/23 17:54 Active BLOOD CULTURE (ED ONLY) Stat LAB 12/08/23 18:17 Received CBC W/ AUTO DIFF DAILY@0600 LAB 12/09/23 06:00 Ordered CBC W/ AUTO DIFF DAILY@0600 LAB 12/10/23 06:00 Ordered CBC W/ AUTO DIFF Stat LAB 12/08/23 18:17 Completed CMP [COMPREHENSIVE METABOLIC PANEL] Stat LAB 12/08/23 18:17 Completed COMPREHENSIVE METABOLIC PANEL DAILY@0600 LAB 12/09/23 06:00 Ordered COMPREHENSIVE METABOLIC PANEL DAILY@0600 LAB 12/10/23 06:00 Ordered MAGNESIUM Stat LAB 12/08/23 18:17 Completed NT-PROBNP Stat LAB 12/08/23 18:17 Completed PT WITH INR Stat LAB 12/08/23 18:17 Completed SARS COV-2 RNA RAPID ERICH Stat LAB 12/08/23 19:09 Completed TROPONIN I Stat LAB 12/08/23 18:17 Completed 0.9 % Sodium Chloride [Saline Flush] Meds 12/08/23 17:54 Active 1 syr IVF PRN PRN Acetaminophen [Tylenol] Meds 12/08/23 19:55 Active 650 mg PO Q4H PRN Albuterol Sulfate 0.083% Neb [Albuterol 0.083% Neb] Meds 12/08/23 19:59 Active 2.5 mg NEB RTQ4H PRN Azithromycin Inj [Zithromax] 500 mg Meds 12/08/23 20:00 Ordered 0.9 % Sodium Chloride [Sodium Chloride] 250 ml IV DAILY Ceftriaxone/D5w 1 gm Premix [Rocephin 1 gm/50 ml D5w] Meds 12/08/23 18:24 Discontinued 1 gm in 50 ml IV ONCE Ceftriaxone/D5w 1 gm Premix [Rocephin 1 gm/50 ml D5w] Meds 12/09/23 19:00 Active 1 gm in 50 ml IV Q24H Ipratropium/Albuterol Neb [Duoneb] Meds 12/08/23 18:36 Discontinued 3 ml NEB ONCE STA Ipratropium/Albuterol Neb [Duoneb] Meds 12/08/23 22:00 Active 3 ml NEB RTQ4H Methylprednisolone Sod Succ/Pf [Solu-Medrol 125 mg] Meds 12/08/23 18:04 Discontinued 125 mg IVP ONCE ONE Methylprednisolone Sod Succ/Pf [Solu-Medrol 40 mg] Meds 12/09/23 02:00 Active 40 mg IVP Q8HR Oseltamivir Phosphate Capsule [Tamiflu Capsule] Meds 12/08/23 18:24 Discontinued 75 mg PO ONCE ONE CHEST, 1V AP ONLY Stat RADS 12/08/23 17:54 Completed Medications Generic Name Dose Route Start Last Admin Trade Name Freq PRN Reason Stop Dose Admin Acetaminophen 650 mg 12/08/23 19:55 Acetaminophen 325 Mg Tablet PO Q4H PRN Mild Pain Albuterol Sulfate 2.5 mg 12/08/23 19:59 Albuterol Sulfate 0.083% Vial.Neb NEB RTQ4H PRN Wheezing Albuterol/Ipratropium 3 ml 12/08/23 22:00 Ipratropium/Albuterol Vial.Neb NEB RTQ4H LEONID CEFTRIAXONE/D5W 1 GM PREMIX 1 gm in 50 mls @ 75 mls/hr 12/09/23 19:00 Rocephin 1 Gm/50 Ml D5w IV 12/12/23 18:59 Q24H LEONID Azithromycin 500 mg/ Sodium 250 mls @ 250 mls/hr 12/08/23 20:00 Chloride IV 12/11/23 19:59 DAILY LEONID Methylprednisolone Sodium Succinate 40 mg 12/09/23 02:00 Methylprednisolone Sod Succ/Pf 40 Mg/Ml Vial IVP Q8HR LEONID Sodium Chloride 1 syr 12/08/23 17:54 12/08/23 19:19 0.9% Sodium Chloride 10 Ml Disp.Syrin IVF 1 syr PRN PRN Administration To flush IV Discontinued Medications Generic Name Dose Route Start Last Admin Trade Name Freq PRN Reason Stop Dose Admin Albuterol/Ipratropium 3 ml 12/08/23 18:36 12/08/23 18:50 Ipratropium/Albuterol Vial.Neb NEB 12/08/23 18:37 3 ml ONCE STA Administration CEFTRIAXONE/D5W 1 GM PREMIX 1 gm in 50 mls @ 100 mls/hr 12/08/23 18:24 12/08/23 19:19 Rocephin 1 Gm/50 Ml D5w IV 12/08/23 18:53 100 mls/hr ONCE ONE Administration Methylprednisolone Sodium Succinate 125 mg 12/08/23 18:04 12/08/23 19:18 Methylprednisolone Sod Succ/Pf 125 Mg/2 Ml Vial IVP 12/08/23 18:05 125 mg ONCE ONE Administration Oseltamivir Phosphate 75 mg 12/08/23 18:24 12/08/23 19:17 Oseltamivir Phosphate 75 Mg Capsule PO 12/08/23 18:25 75 mg ONCE ONE Administration Vital Signs: Temp Pulse Resp BP Pulse Ox 12/08/23 17:17 98.8 F 68 20 127/77 94 L Discharge Plan Discharge Patient Disposition: PLACED OBSERVATION Discharge Problem: Influenza A Community acquired pneumonia Qualifiers: Laterality: left Lung location: lower lobe of lung Qualified Code(s): J18.9 - Pneumonia, unspecified organism Did you review [place] PROJECT ADMINISTRATOR for ALL controlled substances?: Not Applicable ED Provider: FAWAD CONNELL Condition: Stable Physician Progress Note: history obtained from the patient was a family member patient states she has a history of hypertension atrial fibrillation diagnosed with influenza A in her doctor's office on 12/05/2023 now complains of exertional dyspnea and a persistent cough. Patient complains having fever last night. Denies chest pain diaphoresis, palpitations, nausea, vomiting. Patient was administered Rocephin IM and a primary care provider's office 3 days ago, EKG is consistent with atrial fibrillation with PVCs rate of 84-6 4 2 After 2 sets of blood cultures patient administered Rocephin 1 g IV piggyback DuoNeb aerosol treatment IV Solu-Medrol 125 mg Portable chest x-ray interpretation by radiology consistent with the heart is enlarged, pulmonary vascularity normal limits there is a developing opacity left base may be atelectasis or pneumonia Patient administered Tamiflu 75 mg orally All laboratory data reviewed and are within normal limits CBC and the BMP. Troponin less than 0.012, COVID is negative. yes please Differential diagnosis: 1) community-acquired pneumonia 2) influenza A Discussed with hospitalist Dell at 1950 observation []
--- NOTE | 2023-12-08 18:16 | DI ---
EXAM: SINGLE, PORTABLE AP VIEW(S) CHEST. HISTORY: Cough and dyspnea. COMPARISON: 12/05/2023 TECHNIQUE: Single, portable AP view(s) of the chest. FINDINGS: A TAVR device is noted. Lungs: The lung voulmes are normal. Increased opacity is in the left lung base. There are no suspicious nodules. There is no pneumothorax. Cardiovascular: The heart is enlarged. The pulmonary vasculature is within normal limits.. The aorta is calcified. Nel/Mediastinum: Normal. Osseous structures. Normal for age. IMPRESSION: 1. Developing opacity left base may be due to atelectasis or pneumonia. 2. Cardiomegaly.
[2023-12-08 18:24] LABS: BASOPHILS % (AUTO) 0.1 % (0.0-3.0); EOSINOPHILS # (AUTO) 0.2 K/ul (0.0-0.7); EOSINOPHILS % (AUTO) 2.9 % (0.0-7.0); HEMATOCRIT 32.9 % (37.0-47.0); HEMOGLOBIN 10.3 g/dl (12.0-16.0); IMMATURE GRANULOCYTE % (AUTO) 0.4 % (0.0-5.0); LYMPHOCYTES # (AUTO) 1.2 K/uL (0.60-3.4); MEAN CORPUSCULAR HEMOGLOBIN 29.9 pg (27.0-31.0); MEAN CORPUSCULAR HGB CONC 31.3 (31.8-35.4); MEAN CORPUSCULAR VOLUME 95.6 fl (81.0-99.0); MONOCYTES # (AUTO) 0.7 K/uL (0.4-2.0); MONOCYTES % (AUTO) 9.3 (0-10); NEUTROPHILS # (AUTO) 5.5 K/ul (2.0-6.9); NEUTROPHILS % (AUTO) 72.3 % (42.2-75.2); PLATELET COUNT 262 10^3/uL (140-440); RDW COEFFICIENT OF VARIATION 13.9 % (11.6-14.8); RED BLOOD COUNT 3.44 10^6/ul (4.20-5.40); WHITE BLOOD COUNT 7.65 K/ul (4.6-10.2)
[2023-12-08] MEDS: DUONEB NEB STA (18:50)
[2023-12-08 18:53] LABS: PROTHROMBIN TIME 13.8 SEC (9.3-11.0)
[2023-12-08] MEDS: TAMIFLU CAPSULE PO ONE (19:17)
[2023-12-08] MEDS: SOLU-MEDROL 125 MG IVP ONE (19:18)
[2023-12-08] MEDS: ROCEPHIN 1 GM/50 ML D5W 1 GM/50 ML BAG IV ONE (19:19)
[2023-12-08 19:27] LABS: ALANINE AMINOTRANSFERASE 27.4 U/L (0-35); ALBUMIN 3.81 g/dL (3.5-5.0); ALKALINE PHOSPHATASE 97.4 U/L (53-141); ASPARTATE AMINO TRANSFERASE 40.3 U/L (14-36); BILIRUBIN,TOTAL 0.73 mg/dL (0.2-1.3); BLOOD UREA NITROGEN 27.1 mg/dL (7-17); CALCIUM 9.17 mg/dL (8.4-10.2); GLUCOSE 102.2 mg/dL (74-106); MAGNESIUM 2.04 mg/dL (1.6-2.3); POTASSIUM 4.81 mmol/L (3.5-5.1); SODIUM 139.7 mmol/L (134.5-145); TOTAL PROTEIN 7.08 g/dL (6.3-8.2)
[2023-12-08 19:29] LABS: CHLORIDE 111.4 mmol/L (98-107); TROPONIN I < 0.012 ng/ml (0.0000-0.120)
[2023-12-08 19:47] LABS: SARS COV-2 RNA RAPID NAAT NEGATIVE (NEGATIVE)
[2023-12-08] MEDS ORDERED: TYLENOL PO PRN (19:55)
[2023-12-08] MEDS ORDERED: ALBUTEROL 0.083% NEB NEB PRN (19:59)
[2023-12-08] MEDS: ZITHROMAX 500 MG in SODIUM CHLORIDE 250 ML IV SCH (20:44)
[2023-12-08] MEDS: DUONEB NEB SCH (22:10)
[2023-12-08 23:25] VITALS: BMI 33.4
[2023-12-09] MEDS: SOLU-MEDROL 40 MG IVP SCH (02:01)
[2023-12-09 06:04] LABS: HEMATOCRIT 31.7 % (37.0-47.0); HEMOGLOBIN 10.1 g/dl (12.0-16.0); IMMATURE GRANULOCYTE % (AUTO) 0.6 % (0.0-5.0); LYMPHOCYTES # (AUTO) 0.4 K/uL (0.60-3.4); LYMPHOCYTES % (AUTO) 8.1 (10.0-50.0); MEAN CORPUSCULAR HGB CONC 31.9 (31.8-35.4); MEAN CORPUSCULAR VOLUME 94.1 fl (81.0-99.0); MONOCYTES % (AUTO) 0.8 (0-10); NEUTROPHILS # (AUTO) 4.7 K/ul (2.0-6.9); NEUTROPHILS % (AUTO) 90.5 % (42.2-75.2); PLATELET COUNT 253 10^3/uL (140-440); RED BLOOD COUNT 3.37 10^6/ul (4.20-5.40); WHITE BLOOD COUNT 5.17 K/ul (4.6-10.2)
[2023-12-09 06:20] LABS: ALANINE AMINOTRANSFERASE 25.7 U/L (0-35); ALBUMIN 3.53 g/dL (3.5-5.0); BILIRUBIN,TOTAL 0.61 mg/dL (0.2-1.3); CALCIUM 9.02 mg/dL (8.4-10.2); CARBON DIOXIDE 24.5 mmol/L (22-30.0); CREATININE 0.77 mg/dL (0.60-1.30); GLUCOSE 204.6 mg/dL (74-106); POTASSIUM 4.85 mmol/L (3.5-5.1); SODIUM 138.1 mmol/L (134.5-145); TOTAL PROTEIN 6.65 g/dL (6.3-8.2)
[2023-12-09] MEDS ORDERED: NON-FORMULARY MEDICATION (Ferrous Sulfate 325 mg (65 mg iron) tablet) PO SCH (08:15)
[2023-12-09] MEDS: COREG PO SCH (09:04)
[2023-12-09] MEDS: NORVASC PO SCH (09:04)
[2023-12-09] MEDS: ASPIRIN CHEWABLE PO SCH (09:04)
[2023-12-09] MEDS: ENTRESTO 24 MG-26 MG TABLET PO SCH (09:05)
[2023-12-09] MEDS: SPIRIVA IH SCH (09:06)
[2023-12-09] MEDS: BUMEX PO SCH (09:37)
--- NOTE | 2023-12-09 10:56 | PCM ---
Date of Service Date Seen by Provider: 12/09/23 Time Seen by Provider: 08:15 Admit Day/Time Admission Date: 12/08/23 Reason for Admission Chief Complaint: PNEUMONIA, FLU-A Hospital Provider Hospital Provider: SHAHZAD JUAREZ, [facility] Primary Care Physician Primary Care Physician: KAROLINA ANTONIO MD History of Present Illness History of Present Illness: 83 yo female presented to the ER with complaints of fever, chills, weakness, and exertional dyspnea. Patient states that she started feeling sick around 11/29. She saw Dr. Antonio on 12/06 for the same symptoms. He found patient to have flu A and mild pneumonia. Due to patient being high risk due to comorbidities, she was treated with IM rocephin in the office and prescribed keflex and azithromycin x 5 days. Patient states that she was not feeling any better and decided she needed to come to the hospital. Has complaints of continued weakness. Reports feeling some better with use of breathing treatments routinely. Denies chest pain, N/V/D. Case Discussed With Case Discussed With: Patient's case was discussed with the ER Physicians, Dr. Lin. [facility] Medical History Afib I48.91 - Unspecified atrial fibrillation (ICD-10) Lymphedema I89.0 - Lymphedema, not elsewhere classified (ICD-10) Anemia D64.9 - Anemia, unspecified (ICD-10) Sciatica associated with disorder of lumbar spine M53.86 - Other specified dorsopathies, lumbar region (ICD-10) Cat bite of hand S61.459A - Open bite of unspecified hand, initial encounter (ICD-10) W55.01XA - Bitten by cat, initial encounter (ICD-10) Stasis ulcer Legs wrapped today, declined removal today. I83.009 - Varicose veins of unspecified lower extremity with ulcer of unspecified site (ICD-10) L97.909 - Non-pressure chronic ulcer of unspecified part of unspecified lower leg with unspecified severity (ICD-10) Seborrheic dermatitis Resolved. L21.9 - Seborrheic dermatitis, unspecified (ICD-10) Seborrheic dermatitis L21.9 - Seborrheic dermatitis, unspecified (ICD-10) Hemangioma D18.00 - Hemangioma unspecified site (ICD-10) Presence of surgical incision 18 cm incision with alex. Due to have 50% removed tomorrow. No e/o secondary infection today. 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 Stable/improved as of 01/22/22. will refer to Vascular surgeon per Dr. 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 (ICD-10) Peripheral edema R60.9 - Edema, unspecified (ICD-10) Arthritis M19.90 - Unspecified osteoarthritis, unspecified site (ICD-10) Overactive bladder N32.81 - Overactive bladder (ICD-10) Surgical History H/O aortic valve replacement Z95.2 - Presence of prosthetic heart valve (ICD-10) History of musculoskeletal system surgery R KNEE REPLACEMENT Z98.890 - Other specified postprocedural states (ICD-10) History of surgery on integumentary structure (~2013) foot surgery to remove corn Z98.890 - Other specified postprocedural states (ICD-10) History of surgery FATTY TUMOR REMOVAL L BREAST Z98.890 - Other specified postprocedural states (ICD-10) History of orthopedic surgery Z98.890 - Other specified postprocedural states (ICD-10) Status post appendectomy Z90.49 - Acquired absence of other specified parts of digestive tract (ICD- 10) Family History Mother , diabetes Type 1 diabetes mellitus age 35 FATHER , heart attack after gallbladder surgery No problems noted. Social History Smoking and tobacco status: Former smoker How long ago did patient quit smokin years ago Alcohol intake: never Substance use type: does not use Laureen/mandaeism: CONFUCIANIST Special laureen needs: No Agree to transfusion: Yes Adopted: No Caregiver/support person: No Foster care: No Household members: none Housing: house Marital status: W / Lives independently: Yes Daycare: no daycare Number of children: 4 Number of grandchildren: 7 Highest education level completed: 12th grade, no diploma Financial difficulty paying for basics: not very hard service: No care home: No Current occupational status: retired Previous occupational history: [employer] Pets and animals: Yes Leisure activites: games and volunteer work History of recent travel: Yes Do you think of yourself as: straight/heterosexual Current gender identity: female Seatbelt use: always Helmet use: No Drives intoxicated or rides with intoxicated hack driver: No Current diet type/program: low salt Well-balanced diet: daily Caffeine: Yes Eating out: 1-3 times/week Reads food labels: sometimes During the past year weight has: decreased > 10 lbs Water heater temperature set < 120 degrees: Yes Working smoke detector in home: Yes Fire extinguisher in home: Yes Carbon monoxide detector in home: Yes Firearms in home: Yes Firearms unloaded and locked: Yes Physical activity functional status: independent ambulation Allergies Allergies Allergy/AdvReac Type Severity Reaction Status Date / Time Penicillins AdvReac Severe Rash Verified 12/08/23 17:46 pcn Allergy Severe rash , Uncoded 12/08/23 17:46 sores in mouth Current Medications Home Medications sacubitril 24 mg-valsartan 26 mg tablet (Entresto) 1 tab PO BID #180 tabs 03/21/23 [Rx Confirmed 12/09/23 Last Taken 12/08/23 08:00] aspirin 81 mg chewable tablet 81 mg PO DAILY #30 tabs 04/04/23 [Rx Confirmed 12/09/23 Last Taken 12/08/23] ergocalciferol (vitamin D2) 1,250 mcg (50,000 unit) capsule 1,250 mcg PO QMONTH #12 caps 04/22/23 [Rx Confirmed 12/09/23 Last Taken 11/10/23] silver sulfadiazine 1 % topical cream (Silvadene) 1 applic topical BID PRN Rash #50 grams 06/27/23 [Rx Confirmed 12/09/23 Last Taken Unknown] atorvastatin 40 mg tablet (Lipitor) 40 mg PO QHS #90 tabs 08/04/23 [Rx Confirmed 12/09/23 Last Taken 12/07/23] rivaroxaban 20 mg tablet (Xarelto) 20 mg PO QDAY #90 tabs 08/04/23 [Rx Confirmed 12/09/23 Last Taken 12/07/23 20:00] meclizine 25 mg tablet 25 mg PO QDAY PRN dizziness #90 tabs 08/22/23 [Rx Confirmed 12/09/23 Last Taken Unknown] ferrous sulfate 325 mg (65 mg iron) tablet 325 mg PO Q OTHER DAY #30 tabs 09/22/23 [Rx Confirmed 12/09/23 Last Taken 12/08/23] amlodipine 5 mg tablet 5 mg PO QDAY #90 tabs 09/29/23 [Rx Confirmed 12/09/23 Last Taken 12/08/23] carvedilol 12.5 mg tablet 25 mg (2 x 12.5 mg) PO BID #120 tabs 11/22/23 [Rx Confirmed 12/09/23 Last Taken 12/08/23 08:00] albuterol sulfate 2.5 mg/3 mL (0.083 %) solution for nebulization 2.5 mg (3 mL) inhalation Q4-6H PRN shortness of air #100 vials 12/05/23 [Rx Confirmed 12/08/23 Last Taken Unknown] tiotropium bromide 18 mcg capsule with inhalation device (Spiriva with Hand iHaler) 1 cap inhalation QDAY #30 inhalations 12/05/23 [Rx Confirmed 12/08/23 Last Taken Unknown] bumetanide 1 mg tablet 1 mg PO QDAY 12/08/23 [History Confirmed 12/08/23 Last Taken 12/03/23] Home Acetaminophen (Acetaminophen 325 Mg Tablet) 650 mg PO Q4H PRN PRN Reason: Mild Pain Albuterol Sulfate (Albuterol Sulfate 0.083% Vial.Neb) 2.5 mg NEB RTQ4H PRN PRN Reason: Wheezing Albuterol/Ipratropium (Ipratropium/Albuterol Vial.Neb) 3 ml NEB RTQ4H LEONID Last Admin: 12/09/23 09:55 Dose: 3 ml Amlodipine Besylate (Amlodipine Besylate 5 Mg Tablet) 5 mg PO DAILY [facility] Last Admin: 12/09/23 09:44 Dose: 5 mg Aspirin (Aspirin 81 Mg Tab.Chew) 81 mg PO DAILYWM2 [facility] Last Admin: 12/09/23 09:04 Dose: 81 mg Atorvastatin Calcium (Atorvastatin Calcium 20 Mg Tablet) 40 mg PO BEDTIME LEONID Bumetanide (Bumetanide 1 Mg Tablet) 1 mg PO QDAC2 [facility] Last Admin: 12/09/23 09:37 Dose: 1 mg Carvedilol (Carvedilol 12.5 Mg Tablet) 25 mg PO BIDWM2 [facility] Last Admin: 12/09/23 09:04 Dose: 25 mg Ferrous Sulfate (Ferrous Sulfate 324 Mg Tablet.Dr) 324 mg PO Q48HR [facility] CEFTRIAXONE/D5W 1 GM PREMIX (Rocephin 1 Gm/50 Ml D5w) 1 gm in 50 mls @ 75 mls/hr IV BEDTIME LEONID Stop: 12/12/23 20:59 Azithromycin 500 mg/ Sodium (Chloride) 250 mls @ 250 mls/hr IV BEDTIME LEONID Stop: 12/11/23 19:59 Last Admin: 12/08/23 22:04 Dose: Not Given Methylprednisolone Sodium Succinate (Methylprednisolone Sod Succ/Pf 40 Mg/Ml Vial) 40 mg IVP Q8HR [facility] Last Admin: 12/09/23 05:39 Dose: 40 mg Rivaroxaban (Rivaroxaban 10 Mg Tablet) 20 mg PO QPM [facility] Sacubitril/Valsartan (Sacubitril/Valsartan 1 Each Tablet) 1 each PO BID [facility] Last Admin: 12/09/23 09:05 Dose: 1 each Sodium Chloride (0.9% Sodium Chloride 10 Ml Disp.Syrin) 1 syr IVF Q8H [facility] Last Admin: 12/09/23 05:39 Dose: 1 syr Tiotropium [place] (Tiotropium [place] 18 Mcg Cap.W.Dev) 1 cap IH DAILY [facility] Last Admin: 12/09/23 09:06 Dose: 1 cap Discontinued Medications Albuterol/Ipratropium (Ipratropium/Albuterol Vial.Neb) 3 ml NEB ONCE STA Stop: 12/08/23 18:37 Last Admin: 12/08/23 18:50 Dose: 3 ml CEFTRIAXONE/D5W 1 GM PREMIX (Rocephin 1 Gm/50 Ml D5w) 1 gm in 50 mls @ 100 mls/hr IV ONCE ONE Stop: 12/08/23 18:53 Last Admin: 12/08/23 19:19 Dose: 100 mls/hr Methylprednisolone Sodium Succinate (Methylprednisolone Sod Succ/Pf 125 Mg/2 Ml Vial) 125 mg IVP ONCE ONE Stop: 12/08/23 18:05 Last Admin: 12/08/23 19:18 Dose: 125 mg Oseltamivir Phosphate (Oseltamivir Phosphate 75 Mg Capsule) 75 mg PO ONCE ONE Stop: 12/08/23 18:25 Last Admin: 12/08/23 19:17 Dose: 75 mg Sodium Chloride (0.9% Sodium Chloride 10 Ml Disp.Syrin) 1 syr IVF PRN PRN PRN Reason: To flush IV Last Admin: 12/08/23 19:19 Dose: 1 syr Opioid Naive vs. Tolerant What is Opioid Naive?: *Opioid Naive implies the patient is not already taking opioids or not chronically receiving opioids on a daily basis. *PRN dosing is not "usually" associated with tolerance. *Patients are at higher risk of over-sedation and aspiration. What is Opioid Tolerant?: *Opioid Tolerance implies less than the expected response to an opioid. *Acquired tolerance is defined by the patient taking 60mg of oral morphine daily (or equianalgesic dose of another opioid) for 1 week or more. *Often associated with chronic pain. *May take more than usual dose to achieve desired pain control. Review of Systems Constitutional: Reports Fever, Chills and Weakness Head: Reports Normocephalic Eyes: Reports No symptoms Ears: Reports No symptoms Nose: Reports No symptoms Mouth: Reports No symptoms Throat: Reports No symptoms Cardiovascular: Reports No symptoms Respiratory: Reports Cough and Shortness of air Gastrointestinal: Reports No symptoms Genitourinary: Reports No Symptoms Musculoskeletal: Reports No symptoms Endocrine: Reports No symptoms Hematology: Reports No symptoms Immunology: Reports No symptoms Neurological: Reports No symptoms Psychiatric: Reports No symptoms Physical examination Most Recent Vital Signs: Most Recent Vital Signs Temperature 98.9 F 12/09/23 09:50 Temperature Source Tympanic 12/09/23 09:50 Temperature Source Infrared 12/08/23 17:17 Pulse Rate 84 12/09/23 09:50 Respiratory Rate 18 12/09/23 09:50 Blood Pressure 134/85 12/09/23 09:50 Blood Pressure Mean 101 12/09/23 09:50 Blood Pressure Right Arm 124/83 12/08/23 22:40 Blood Pressure Location Right Arm 12/09/23 09:50 Blood Pressure Position Supine 12/09/23 09:50 O2 Sat by Pulse Oximetry 94 L 12/09/23 09:50 Oxygen Delivery Method Room Air 12/09/23 09:50 Height 5 ft 12/08/23 22:40 Weight 171 lb 8 oz 12/09/23 06:00 Telemetry Type Remote Telemetry 12/09/23 07:00 Telemetry Monitoring Continues 12/09/23 07:00 Irregular Telemetry Rate (Approximate) 100-110 BPM 12/09/23 01:00 Telemetry Heart Rate 110 H 12/09/23 07:00 Telemetry SPO2 93 12/09/23 01:00 EKG QRS Interval 0.14 H 12/09/23 07:00 Telemetry Strip Reading Atrial Fib with BBB and RVR/PVC's 12/09/23 07:00 Appearance: Positive No Apparent Distress and Alert and Oriented x3 Skin: Positive Warm and Good Turgor HEENT: Positive Normocephalic and PERRLA Neck: Positive Supple and Midline Trachea Chest/Lungs: Positive Symmetrical With Equal Breath Sounds and Rhonci (throughout lung garcia) Heart: Positive RRR and Pulses Normal GI/: Positive Soft, Nontender, Bowel Sounds Normal and No Distention Musculoskeletal: Positive Not Examined Extremities: Positive Intact Peripheral Pulses, Stable Joints Without Laxity and Good ROM in All Joints Neurological: Positive Sensation Intact, Motor intact, Reflexes Intact, Alert, Oriented and Other (generalized weakness) Labs This Visit Labs This Visit: Labs This Visit 12/08/23 12/08/23 12/09/23 18:17 19:09 05:45 WBC 7.65 5.17 RBC 3.44 L 3.37 L Hgb 10.3 L 10.1 L Hct 32.9 L 31.7 L MCV 95.6 94.1 MCH 29.9 30.0 MCHC 31.3 L 31.9 RDW Coeff of Tameka 13.9 14.0 Plt Count 262 253 Immature Gran % (Auto) 0.4 0.6 Neut % (Auto) 72.3 90.5 H Lymph % (Auto) 15.0 8.1 L [place] % (Auto) 9.3 0.8 Eos % (Auto) 2.9 0.0 Baso % (Auto) 0.1 0.0 Neut # (Auto) 5.5 4.7 Lymph # (Auto) 1.2 0.4 L [place] # (Auto) 0.7 0.0 L Eos # (Auto) 0.2 0.0 Baso # (Auto) 0.0 0.0 Immature Gran # (Auto) 0.0 0.0 PT 13.8 H INR 1.35 Sodium 139.7 138.1 Potassium 4.81 4.85 Chloride 111.4 H 112.0 H Carbon Dioxide 25.0 24.5 Anion Gap 8.11 6.45 BUN 27.1 H 25.0 H Creatinine 0.80 0.77 Estimated GFR (MDRD) 68.00 71.00 BUN/Creatinine Ratio 33.87 32.46 Glucose 102.2 204.6 H D Calcium 9.17 9.02 Magnesium 2.04 Total Bilirubin 0.73 0.61 AST 40.3 H 33.0 ALT 27.4 25.7 Alkaline Phosphatase 97.4 87.0 Troponin I < 0.012 NT-Pro-B Natriuret Pep 5800 H Total Protein 7.08 6.65 Albumin 3.81 3.53 Globulin 3.27 3.12 Albumin/Globulin Ratio 1.16 1.13 SARS CoV-2 RNA Rapid ERICH Negative Imaging Imaging: EXAM: SINGLE, PORTABLE AP VIEW(S) CHEST. IMPRESSION: 1. Developing opacity left base may be due to atelectasis or pneumonia. 2. Cardiomegaly. Review Statement Review Statement: I have independently reviewed and interpreted the labs/EKGs/imaging that were ordered by the ER provider. I have reviewed all outside records that are available currently in our EMR including imaging/notes/labs from previous visits. Plan Plan: 1. Community Acquired Pneumonia - failed outpatient therapy, azith and rocephin, steroids, nebs 2. Influenza A - isolation, out of window for tamiflu, symptomatic treatment 3. CHF - chronic, not in exacerbation, daily weight, I&O, continue home medications, 1800 fluid restriction 4. Hypertension - chronic, continue home medications DVT Prophylaxis: Xarelto Time Spent: Greater than 80 minutes spent with patient, 50% of the time spent with this patient was devoted to counseling and coordination of care. Advanced [facility] Plannin minutes spent discussing advance care planning. Disposition: Admit to: Med/Surg Observation Full Code Discussed Plan of Care with Dr. Adam Le. Medications Medication Orders: Medications Ordered Category Date Time Status 0.9 % Sodium Chloride [Saline Flush] Meds 12/09/23 05:00 Active 1 syr IVF Q8H Acetaminophen [Tylenol] Meds 12/08/23 19:55 Active 650 mg PO Q4H PRN Albuterol Sulfate 0.083% Neb [Albuterol 0.083% Neb] Meds 12/08/23 19:59 Active 2.5 mg NEB RTQ4H PRN Amlodipine Besylate [Norvasc] Meds 12/09/23 08:30 Active 5 mg PO DAILY Aspirin [Aspirin Chewable] Meds 12/09/23 08:30 Active 81 mg PO DAILYWM2 Atorvastatin Calcium [Lipitor] Meds 12/09/23 21:00 Active 40 mg PO BEDTIME Azithromycin Inj [Zithromax] 500 mg Meds 12/08/23 20:00 Active 0.9 % Sodium Chloride [Sodium Chloride] 250 ml IV BEDTIME Bumetanide [Bumex] Meds 12/09/23 08:30 Active 1 mg PO QDAC2 Carvedilol [Coreg] Meds 12/09/23 08:30 Active 25 mg PO BIDWM2 Ceftriaxone/D5w 1 gm Premix [Rocephin 1 gm/50 ml D5w] Meds 12/09/23 21:00 Active 1 gm in 50 ml IV BEDTIME Ferrous Sulfate Meds 12/10/23 09:00 Active 324 mg PO Q48HR Ipratropium/Albuterol Neb [Duoneb] Meds 12/08/23 22:00 Active 3 ml NEB RTQ4H Methylprednisolone Sod Succ/Pf [Solu-Medrol 40 mg] Meds 12/09/23 02:00 Active 40 mg IVP Q8HR Rivaroxaban [Xarelto] Meds 12/09/23 17:00 Active 20 mg PO QPM Sacubitril/Valsartan [Entresto 24 mg-26 mg Tablet] Meds 12/09/23 09:00 Active 1 each PO BID Tiotropium [place] [Spiriva] Meds 12/09/23 09:00 Active 1 cap IH DAILY
[2023-12-09] MEDS: XARELTO PO SCH (16:53)
[2023-12-09] MEDS: ROCEPHIN 1 GM/50 ML D5W 1 GM/50 ML BAG IV SCH (21:07)
[2023-12-09] MEDS: LIPITOR PO SCH (21:09)
[2023-12-10 05:46] LABS: BASOPHILS % (AUTO) 0.1 % (0.0-3.0); HEMATOCRIT 31.8 % (37.0-47.0); HEMOGLOBIN 10.1 g/dl (12.0-16.0); IMMATURE GRANULOCYTE # (AUTO) 0.1 (0.0-1.0); IMMATURE GRANULOCYTE % (AUTO) 0.4 % (0.0-5.0); LYMPHOCYTES # (AUTO) 0.6 K/uL (0.60-3.4); LYMPHOCYTES % (AUTO) 4.1 (10.0-50.0); MEAN CORPUSCULAR HEMOGLOBIN 29.5 pg (27.0-31.0); MEAN CORPUSCULAR HGB CONC 31.8 (31.8-35.4); MONOCYTES # (AUTO) 0.4 K/uL (0.4-2.0); MONOCYTES % (AUTO) 2.4 (0-10); NEUTROPHILS # (AUTO) 13.4 K/ul (2.0-6.9); PLATELET COUNT 310 10^3/uL (140-440); RDW COEFFICIENT OF VARIATION 13.9 % (11.6-14.8); RED BLOOD COUNT 3.42 10^6/ul (4.20-5.40)
[2023-12-10 05:49] LABS: ALANINE AMINOTRANSFERASE 23.9 U/L (0-35); ALBUMIN 3.25 g/dL (3.5-5.0); ALKALINE PHOSPHATASE 83.9 U/L (53-141); BILIRUBIN,TOTAL 0.54 mg/dL (0.2-1.3); BLOOD UREA NITROGEN 28.3 mg/dL (7-17); CALCIUM 8.93 mg/dL (8.4-10.2); CARBON DIOXIDE 23.2 mmol/L (22-30.0); CHLORIDE 110.6 mmol/L (98-107); CREATININE 0.83 mg/dL (0.60-1.30); GLUCOSE 171.6 mg/dL (74-106); POTASSIUM 4.04 mmol/L (3.5-5.1); TOTAL PROTEIN 6.33 g/dL (6.3-8.2)
[2023-12-10 05:55] LABS: WHITE BLOOD COUNT 14.44 K/ul (4.6-10.2)
[2023-12-10] MEDS: FERROUS SULFATE PO SCH (09:16)
--- NOTE | 2023-12-10 09:26 | DCSUM ---
Admission Date Admission Date: 12/08/23 Discharge Date Discharge Date: 12/10/23 Admission Diagnosis Admission Diagnosis: 1. Community Acquired Pneumonia 2. Influenza A 3. CHF 4. Hypertension Discharge Diagnosis Discharge Diagnosis: 1. Community Acquired Pneumonia - Improving 2. Influenza A - Improving 3. CHF - Chronic, Stable 4. Hypertension - Chronic, Stable Hospital Provider Hospital Provider: SHAHZAD JUAREZ, [facility] [place] Primary Care Physician: KAROLINA ANTONIO MD Summary of History and Physical Summary of History and Physical: 83 yo female presented to the ER with complaints of fever, chills, weakness, and exertional dyspnea. Patient states that she started feeling sick around 11/29. She saw Dr. Antonio on 12/06 for the same symptoms. He found patient to have flu A and mild pneumonia. Due to patient being high risk due to comorbidities, she was treated with IM rocephin in the office and prescribed keflex and azithromycin x 5 days. Patient states that she was not feeling any better and decided she needed to come to the hospital. Has complaints of continued weakness. Reports feeling some better with use of breathing treatments routinely. Denies chest pain, N/V/D. Hospital Course Subjective: During stay, patient has been treated for community acquired pneumonia secondary to flu A. Patient reported today prior to discharge that the medication she was prescribed by her PCP was not ready at the pharmacy and she did not start the course of medications prior to admission. She was given azithromycin and rocephin x 48 hours. She has not required oxygen during her stay. She has also been given nebulizer treatments and steroids. Reports feeling much better today. Still has some mild SOB on exertion but is chronically SOB. Feels comfortable going home at this time. No changes made to home medications. Discussed to burr picker antibiotics that Dr. Zendejas'millie prescribed and complete course. Appearance: Pleasant, No Apparent Distress and Alert HEENT: MMM, Supple and No JVD CVS: No Murmur Abdomen: Soft, Non-Tender and No Distention Respiratory: No Dyspnea Extremities: No Edema Vital Signs: Most Recent Vital Signs Temperature 97.5 F L 12/10/23 05:17 Temperature Source Oral 12/10/23 05:17 Temperature Source Infrared 12/08/23 17:17 Pulse Rate 86 12/10/23 05:17 Respiratory Rate 16 12/10/23 05:17 Blood Pressure 125/61 03/02/24 05:17 Blood Pressure Mean 82 12/10/23 05:17 Blood Pressure Right Arm 124/83 12/08/23 22:40 Blood Pressure Location Right Arm 12/10/23 05:17 Blood Pressure Position Supine 12/10/23 05:17 O2 Sat by Pulse Oximetry 92 L 12/10/23 05:17 Oxygen Delivery Method Room Air 12/10/23 09:00 Height 5 ft 12/08/23 22:40 Weight 170 lb 7 oz 12/10/23 05:18 Telemetry Type Remote Telemetry 12/10/23 01:00 Telemetry Monitoring Continues 12/10/23 01:00 Irregular Telemetry Rate (Approximate) 100-110 BPM 12/09/23 01:00 Telemetry Heart Rate 87 12/10/23 01:00 Telemetry SPO2 94 12/10/23 01:00 EKG QRS Interval 0.06 12/10/23 01:00 Telemetry Strip Reading ATRIAL FIB 12/10/23 01:00 Lab Results Last 24 Hours: 12/10/23 05:02 WBC 14.44 H D RBC 3.42 L Hgb 10.1 L Hct 31.8 L MCV 93.0 MCH 29.5 MCHC 31.8 RDW Coeff of Tameka 13.9 Plt Count 310 Immature Gran % (Auto) 0.4 Neut % (Auto) 93.0 H Lymph % (Auto) 4.1 L Tift % (Auto) 2.4 Eos % (Auto) 0.0 Baso % (Auto) 0.1 Neut # (Auto) 13.4 H Lymph # (Auto) 0.6 Tift # (Auto) 0.4 Eos # (Auto) 0.0 Baso # (Auto) 0.0 Immature Gran # (Auto) 0.1 Sodium 137.0 Potassium 4.04 Chloride 110.6 H Carbon Dioxide 23.2 Anion Gap 7.24 BUN 28.3 H Creatinine 0.83 Estimated GFR (MDRD) 65.00 BUN/Creatinine Ratio 34.09 Glucose 171.6 H Calcium 8.93 Total Bilirubin 0.54 AST 28.0 ALT 23.9 Alkaline Phosphatase 83.9 Total Protein 6.33 Albumin 3.25 L Globulin 3.08 Albumin/Globulin Ratio 1.05 Discharge Instructions Discharge Planning: Discharge Planning > 40 minutes If patient is discharged with left ventricular systolic dysfunction: NA Discharged with a beta vika? [] If no, why not? [] Discharged with an gume/arb? [] If no, why not? [] DX: CAP SECONDARY TO FLU A RX: NONE, ALREADY PRESCRIBED AZITH AND KEFLEX REGULAR DIET ACTIVITY TOLERATED FOLLOW-UP WITH PCP NEXT WEEK Discharge Medications: Medications at Discharge (Home Meds & RX) sacubitril 24 mg-valsartan 26 mg tablet (Entresto) 1 tab PO BID #180 tabs 03/21/23 aspirin 81 mg chewable tablet 81 mg PO DAILY #30 tabs 04/04/23 ergocalciferol (vitamin D2) 1,250 mcg (50,000 unit) capsule 1,250 mcg PO QMONTH #12 caps 04/22/23 silver sulfadiazine 1 % topical cream (Silvadene) 1 applic topical BID PRN Rash #50 grams 06/27/23 atorvastatin 40 mg tablet (Lipitor) 40 mg PO QHS #90 tabs 08/04/23 rivaroxaban 20 mg tablet (Xarelto) 20 mg PO QDAY #90 tabs 08/04/23 meclizine 25 mg tablet 25 mg PO QDAY PRN dizziness #90 tabs 08/22/23 ferrous sulfate 325 mg (65 mg iron) tablet 325 mg PO Q OTHER DAY #30 tabs 09/22/23 amlodipine 5 mg tablet 5 mg PO QDAY #90 tabs 09/29/23 carvedilol 12.5 mg tablet 25 mg (2 x 12.5 mg) PO BID #120 tabs 11/22/23 albuterol sulfate 2.5 mg/3 mL (0.083 %) solution for nebulization 2.5 mg (3 mL) inhalation Q4-6H PRN shortness of air #100 vials 12/05/23 tiotropium bromide 18 mcg capsule with inhalation device (Spiriva with Handi Haler) 1 cap inhalation QDAY #30 inhalations 12/05/23 bumetanide 1 mg tablet 1 mg PO QDAY 12/08/23 Discharge Plan Discharge Discharge Orders: Discharge Patient (ONCE); Ordered 12/10/23 Ordered By: LINH TREVINO Activity Restrictions/Additional Instructions: Regular diet Activity as tolerated Follow-up with PCP next week. Medications: Complete course of azithromycin and cephalexin as prescribed by Dr. Antonio. Instructions: Community Acquired Pneumonia (GEN) Patient Disposition: HOME SELF-CARE Prescriptions: Continued Entresto 24-26 mg tablet 1 tab PO BID Qty: 180 1RF ergocalciferol (vitamin D2) 1,250 mcg (50,000 unit) capsule 1,250 mcg PO QMONTH Qty: 12 0RF Xarelto 20 mg tablet 20 mg PO QDAY Qty: 90 1RF Rx Instructions: must administer with evening meal atorvastatin [Lipitor] 40 mg tablet 40 mg PO QHS Qty: 90 1RF amlodipine 5 mg tablet 5 mg PO QDAY Qty: 90 1RF carvedilol 12.5 mg tablet 25 mg PO BID Qty: 120 0RF bumetanide 1 mg tablet 1 mg PO QDAY aspirin 81 mg tablet,chewable 81 mg PO DAILY Qty: 30 1RF meclizine 25 mg tablet 25 mg PO QDAY PRN (Reason: dizziness) Qty: 90 0RF albuterol sulfate 2.5 mg /3 mL (0.083 %) solution for nebulization 2.5 mg inhalation Q4-6H PRN (Reason: shortness of air) Qty: 100 1RF tiotropium bromide [Spiriva with HandiHaler] 18 mcg capsule, w/inhalation device 1 cap inhalation QDAY Qty: 30 0RF Rx Instructions: puncture 1 cap using device; one dose = 2 inhalations silver sulfadiazine [Silvadene] 1 % cream 1 applic topical BID PRN (Reason: Rash) Qty: 50 1RF Patient Comments: uses as needed Rx Instructions: apply a 1.5 mm thickness ferrous sulfate 325 mg (65 mg iron) tablet 325 mg PO Q OTHER DAY Qty: 30 5RF Rx Instructions: Change to QOD with vitamin C beverage. Did you review [place] [employer] for ALL controlled substances?: No Discussed opioids are addictive and Narcan is available by prescription or from pharmacy.: No Condition: Stable
[2023-12-10 09:49] VITALS: BP 119/63; PULSE 72; RESP 20; TEMP 98.8
== END 2023-12-10 11:50 | disposition home or self-care (01) ==
LOC: ED 16:54 → MEDSURG B 16:54
PROVIDERS: ADMIT Hospitalist; ATTEND Nurse Practitioner Family
DX: I10 Essential (primary) hypertension; J18.9 Pneumonia, unspecified organism; J11.1 Influenza due to unidentified influenza virus with other respiratory manifestations; I50.9 Heart failure, unspecified; Z20.822 Contact with and (suspected) exposure to COVID-19; I48.91 Unspecified atrial fibrillation; D64.9 Anemia, unspecified